=== PATIENT | female | born 1945 | race Hispanic/Latino ===

== ENCOUNTER 2020-02-21 06:13 | Emergency (ER) | payer MEDICARE, MEDICAID, SELFPAY ==
--- NOTE | ~2020-02-21 | XR_ITS ---
EXAMINATION: XR G tube evaluation w imaging DATE: 02/21/2020 08:22 INDICATION: Gastrostomy tube placement. TECHNIQUE: A supine view of the abdomen was obtained. COMPARISON: Abdomen single view at 7:47 AM FINDINGS: Stool distends the rectum. There is a large volume of stool in the colon. There is a gastro stomy tube in the body of the stomach. There is contrast in the tubing, stomach, and proximal duodenu m. IMPRESSION: 1. Gastrostomy tube in expected position in the body of the stomach. 2. Stool distends the rectum. Reviewed, dictated and finalized at location A.
--- NOTE | ~2020-02-21 | XR_ITS ---
EXAMINATION: XR abdomen/kub 1V DATE: 02/21/2020 07:51 INDICATION: Gastrostomy tube placement. TECHNIQUE: A supine view of the abdomen was obtained. COMPARISON: CT abdomen and pelvis 07/01/2013 FINDINGS: A gastrostomy tube overlies the left abdomen. There are no dilated loops of bowel. There is a large volume of stool in the colon. IMPRESSION: 1. Gastrostomy tube overlying the left abdomen. If there is clinical concern for abnormal positioning of the gastrostomy tube, consider contrast injection. Reviewed, dictated and finalized at location A. IMPRESSION: 1. Gastrostomy tube overlying the left abdomen. If there is clinical concern fo r abnormal positioning of the gastrostomy tube, consider contrast injection.
[2020-02-21 06:11] VITALS: BP 154/57; PULSE 65; RESP 20; TEMP 36.9; O2SAT 100
--- NOTE | 2020-02-21 06:19 | PC.NURSE ---
Patient's bedside glucose on arrival the ED is 98.
[2020-02-21 06:21] LABS: Glucose Point of Care 98 (65-105)
--- NOTE | 2020-02-21 07:18 | ED.RECABL ---
HPI - Recheck/Abnormal Lab/Rx General Chief Complaint: Recheck/Abnormal Lab/Rx Stated Complaint: G TUBE PROB Time Seen by Provider: 02/21/20 06:59 Source: EMS Mode of arrival: EMS Limitations: other (aphasia from previous stroke) History of Present Illness HPI narrative: This patient is a 74 year old female with history of CVA with aphasia with a g tube who presents for evaluation of a g tube. Nursing staff reports patient uses g tube for nutrition and it is clogged this morning. Nurses in ED attempted to flush but she states she was unable. PAtient was also found to be hypoglycemic prior to arrival with BS 59. She was given insulin last night. EMS gave patient d10 and her BS came up to 109. MD complaint: other (g tube malfunction) Related Data Allergies Allergy/AdvReac Type Severity Reaction Status Date / Time No Known Allergies Allergy Unknown Unverified 03/11/16 18:29 Review of Systems Review of Systems: ROS unobtainable: Yes unobtainable due to medical condition (patient has aphasia) Exam Const: General: no acute distress and alert HENMT: Head: normocephalic and atraumatic Eyes: EOM: EOMs intact bilaterally Chest: Chest palpation & inspection: normal inspection of the chest Resp: Effort & Inspection: normal respiratory effort Auscultation: clear to auscultation bilaterally Cardio: Rate: regular rate Rhythm: regular rhythm Heart sounds: no murmurs GI: Auscultation: normal bowel sounds Other: g tube in place, no bleeding or swelling around, Extrem: Other: contractures to extremity in particularly the left Psych: Mental Status: mental status grossly normal Affect: normal affect Course Reevaluation(s) Reevaluation #1: On assessment of original G tube I was able to flush with ease and draw back. Nursing staff continued to assess and all ports working. G tube in adequate position. Patient will be discharged back Date: 02/21/20 Time: 08:44 Vital Signs Vital signs: Vital Signs Temperature 98.4 F 02/21/20 06:11 Pulse Rate 65 02/21/20 06:11 Respiratory Rate 20 02/21/20 06:11 Blood Pressure 154/57 H 02/21/20 06:11 Pulse Oximetry 100 02/21/20 06:11 Temperature 98.4 F 02/21/20 06:11 Pulse Rate 62 02/21/20 09:32 Respiratory Rate 16 02/21/20 09:32 Blood Pressure 147/62 H 02/21/20 09:32 Pulse Oximetry 100 02/21/20 09:32 [facility] - Recheck/Abnormal Lab/Rx Lab Data Labs: Lab Results 02/21/20 02/21/20 02/21/20 Range/Units 06:18 07:51 08:56 POC Capillary Glucose 98 72 179 H (65-105) mg/dl Imaging Data Radiologist's impression: ITS Impressions Abdomen X-Ray 02/21/20 07:57 IMPRESSION: 1. Gastrostomy tube overlying the left abdomen. If there is clinical concern for abnormal positioning of the gastrostomy tube, consider contrast injection. Contrast Injection Evaluation 02/21/20 08:24 IMPRESSION: 1. Gastrostomy tube in expected position in the body of the stomach. 2. Stool distends the rectum. Discharge Plan Discharge Clinical Impression: Gastrostomy tube obstruction Patient Disposition: Home, Self-Care Condition: Stable Instructions: Antibiotic Form, How to Use and Care for Your PEG Tube (ED) Follow-up/Referrals: Lemuel Collazo MD [Primary Care Provider] - Discharge Date/Time: 02/21/20 09:39
--- NOTE | 2020-02-21 07:29 | PC.NURSE ---
ERP AT BEDSIDE TO REPLACE GTUBE AT THIS TIME, ASSUMED PT CARE FROM YOGESH AKINS, PT RESTING COMFORTABLY, VSS.
[2020-02-21 07:30] VITALS: BP 160/63; PULSE 62; RESP 18; O2SAT 100
[2020-02-21] MEDS: DEXTROSE 50% 25 GM/50 ML SYRINGE IV PUSH (07:49)
[2020-02-21 07:58] LABS: Glucose Point of Care 72 (65-105)
[2020-02-21 08:36] VITALS: BP 152/55; PULSE 63; RESP 16; O2SAT 100
[2020-02-21 08:59] LABS: Glucose Point of Care 179 (65-105)
[2020-02-21 09:32] VITALS: BP 147/62; PULSE 62; RESP 16; O2SAT 100
--- NOTE | 2020-02-21 09:33 | PC.NURSE ---
ATTEMPT TO CALL REPORT X3 TO [facility], NO ANSWER, NO VOICEMAIL REACHED, PHONE DISCONECTED EACH ATTEMPT.
--- NOTE | 2020-02-21 09:37 | PC.NURSE ---
REACHED SOMEONE AT [facility] AFTER CALLING AGAIN, SHE HUNG UP AFTER PLACING ME ON HOLD X5 MINUTES.
== END 2020-02-21 09:39 ==
PROVIDERS: Emergency Provider General Practice; PCP Family Medicine
DX: K94.23 Gastrostomy malfunction (principal); I69.920 Aphasia following unspecified cerebrovascular disease
CPT/HCPCS: 49465; 74018; 82948; 96374; 99284

== ENCOUNTER 2020-06-07 01:04 | Day surgery (SDC) | payer MEDICARE, MEDICAID, SELFPAY ==
--- NOTE | 2020-06-04 13:54 | PC.NURSE ---
1350 SPOKE WITH NURSE [facility] AT [facility] AND REQUESTED THE FOLLOWING INFO BE FAXED FROM PATIENT'S MEDICAL RECORD: HISTORY & PHYSICAL, MEDICATION LIST, CURRENT HEIGHT AND WEIGHT, AND ADVANCE DIRECTIVES/POA PAPERWORK. DOMINIQUE ZUÑIGA
[2020-06-05 09:04] VITALS: BMI 27.7
--- NOTE | 2020-06-05 09:19 | PC.NURSE ---
05/23/2020 COVID 19 TEST NEGATIVE FROM [facility]. DOMINIQUE ZUÑIGA
[2020-06-07 10:09] VITALS: BP 117/44; PULSE 52; RESP 16; TEMP 36.3; O2SAT 100
--- NOTE | 2020-06-07 10:25 | SUR.PREOP ---
Patient arrived by EMS awake and alert. FLACC 0. VSS. Patient remained on stretcher for procedure. MD at bedside- PEG tube removed and replaced with 18F right angle PEG tube. Patient tolerated well. New orders and report called to Candi RN at [facility]. Dressing applied. No acute distress noted. FLACC 0.
--- NOTE | 2020-06-07 14:09 | OP_ITS ---
DATE OF PROCEDURE: 06/07/2020 HISTORY AND PREOPERATIVE DIAGNOSIS: This very pleasant lady has a poorly functioning, unconditioned percutaneous gastrostomy tube. She is here for changing her gastrostomy tube. POSTOPERATIVE DIAGNOSIS: Status post changing of percutaneous gastrostomy tube. RECOMMENDATIONS: 1. Pressure dressing 48 hours. 2. Clean PEG site every shift with soap and water. 3. [facility] to confirm [facility]. 4. Please call if any problems. DESCRIPTION OF PROCEDURE: Patient was brought to the endoscopy suite and placed in the supine position. The old percutaneous gastrostomy tube was noted. It was in poor condition. This was removed with gentle traction. An 18-Uzbek percutaneous gastrostomy tube was inserted without difficulty. The gastrostomy tube was irrigated and bile was returned confirming placement. The patient tolerated the procedure well without immediate complications. Aldair I MT: Salbador
--- NOTE | 2020-06-07 15:13 | HP_ITS ---
DATE OF SERVICE: 06/07/2020 REASON FOR VISIT: Changing PEG tube. This very pleasant lady was seen in consultation at the request of the primary physician. The patient was examined. IMPRESSION: 1. The patient has a poor condition percutaneous gastrostomy tube. She is here for changing of the gastrostomy tube. 2. Gastroesophageal reflux disease. 3. Cerebral aneurysm with persistent left hemiplegia. 4. Hypertension. 5. Diabetes mellitus. RECOMMENDATIONS: Change the PEG tube. HISTORY: This very pleasant lady has a history of significant left hemiplegia. She is requiring percutaneous gastrostomy tube feedings. The old PEG tube is in poor condition. She is here for changing of the PEG tube. ALLERGIES: NO KNOWN DRUG ALLERGIES. MEDICINES: Reviewed. PAST MEDICAL HISTORY: As above. PAST SURGICAL HISTORY: Patient has a previously placed percutaneous gastrostomy tube. PHYSICAL EXAMINATION: HEENT: Head is normocephalic. Sclerae are clear. Mouth without masses. NECK: Supple. HEART: Rate and rhythm are regular without S3 or S4. LUNGS: Clear. ABDOMEN: Soft with a percutaneous gastrostomy tube in place. NEUROLOGIC: The patient has left hemiplegia. I want to thank you for allowing me to participate in the care of this patient. D I MT: Salbador
--- NOTE | 2020-06-08 09:57 | SUR.OPER ---
06/07/20 1025 Pt discarged via ambulance.
--- NOTE | 2020-06-11 15:42 | SUR.PREOP ---
06/07/20 1025 Pt discharged to [facility] via ambulance.
== END 2020-06-07 10:25 | disposition home or self-care (01) ==
PROVIDERS: PCP Family Medicine; Visit Provider Internal Medicine Gastroenterology
PROC: 0DH63UZ Insertion of Feeding Device into Stomach, Percutaneous Approach (ICD-10-PCS; CPT 43246; principal; 2020-06-07 09:30)
DX: K94.23 Gastrostomy malfunction (principal); K21.9 Gastro-esophageal reflux disease without esophagitis; I69.354 Hemiplegia and hemiparesis following cerebral infarction affecting left non-dominant side; I10 Essential (primary) hypertension; E11.9 Type 2 diabetes mellitus without complications
CPT/HCPCS: 43762; 99211; G0463

== ENCOUNTER 2020-07-05 14:28 | Emergency (ER) | payer MEDICARE, MEDICAID, SELFPAY ==
--- NOTE | ~2020-07-05 | CT_ITS ---
EXAMINATION: CT abdomen pelvis w con DATE: 07/05/2020 18:12 INDICATION: Abdomen pain. Weight gain. TECHNIQUE: Computed tomography (CT) of the abdomen and pelvis was performed with 100 cc Omnipaque 350 intravenous contrast. The dose-length product was 1155.97 mGy-cm. Automated exposure control and ite rative reconstruction technique were employed. COMPARISON: CT dated 06/01/2013 FINDINGS: Small pericardial effusion. Borderline heart size. There is an gastric tube in expected pos ition. The liver, spleen, pancreas, adrenal glands and left kidney are unremarkable. There is diffuse right urothelial enhancement, suspicious for ascending urinary tract infection. No obstructing stone or mass identified. Small soft tissue nodule left anterior abdominal wall, likely injection granulom a. Nonobstructive bowel gas pattern. Moderate fecal loading of the rectum. No lymphadenopathy. There is atherosclerosis. Gallbladder is present. No free air or free fluid. Study significantly limited by motion artifact. IMPRESSION: 1. Diffuse urothelial enhancement of the right renal pelvis and ureter, suspicious for ascending urin kathy tract infection/pyelonephritis. No definite obstructing stone or mass identified, although evalua tion of the pelvis limited by motion artifact. 2: Small pericardial effusion. Reviewed, dictated and finalized at location A. IMPRESSION: 1. Diffuse urothelial enhancement of the right renal pelvis and ureter, suspici ous for ascending urinary tract infection/pyelonephritis. No definite obstructi ng stone or mass identified, although evaluation of the pelvis limited by motio n artifact. 2: Small pericardial effusion.
[2020-07-05 14:39] VITALS: BP 125/53; PULSE 57; RESP 18; TEMP 36.7; O2SAT 97
--- NOTE | 2020-07-05 15:32 | ED.ABDPAIN ---
HPI - Abdominal Pain General Chief Complaint: Abdominal Pain Stated Complaint: ABD PAIN Time Seen by Provider: 07/05/20 15:24 Source: patient and EMS Mode of arrival: EMS Limitations: other (history of CVA with residual deficits, patient is nonverbal) History of Present Illness HPI narrative: This is a 74-year-old female that presents to the emergency department via EMS for abdominal pain per [facility]. Patient is nonverbal at baseline. They report her abdomen seem more distended and was tender. Patient resting on stretcher currently in no acute distress. Related Data Home Medications Medication Instructions Recorded Confirmed amlodipine 10 mg FEEDING TUBE DAILY 06/05/20 06/05/20 aspirin [Adult Low Dose Aspirin] 81 mg FEEDING TUBE DAILY 06/05/20 06/05/20 cholestyramine (with sugar) 4 g FEEDING TUBE DAILY 06/05/20 06/05/20 glucagon (human recombinant) 1 mg SUBCUT Q15-20M PRN 06/05/20 06/05/20 [GlucaGen HypoKit] hydralazine 50 mg FEEDING TUBE TID 06/05/20 06/05/20 insulin glargine [Lantus U-100 30 unit SUBCUT HS 06/05/20 06/05/20 Insulin] losartan 100 mg FEEDING TUBE DAILY 06/05/20 06/05/20 multivitamin with minerals 15 ml FEEDING TUBE DAILY 06/05/20 06/05/20 pravastatin 40 mg FEEDING TUBE DAILY 06/05/20 06/05/20 propranolol 120 mg FEEDING TUBE BID 06/05/20 06/05/20 Allergies Allergy/AdvReac Type Severity Reaction Status Date / Time No Known Allergies Allergy Unknown Verified 07/05/20 14:47 Review of Systems Review of Systems: ROS unobtainable: Yes unobtainable due to medical condition PMFSH Past Medical History Medical History (Updated 07/05/20 @ 20:28 by Cori Pinto PA-C) History of diabetes mellitus History of hyperlipidemia History of hypertension Exam Narrative: Exam Narrative: GENERAL: Well-appearing, well-nourished, and in no acute distress. HEAD: Normocephalic, atraumatic. EYES: EOMI. CHEST: Clear to auscultation. No respiratory distress. No wheezes rales or rhonchi HEART: Regular rate and rhythm. No murmur heard. Normal peripheral pulses. ABDOMEN: Soft, nondistended, normal active bowel sounds. Mild tenderness to palpation throughout the abdomen, without guarding EXTREMITIES: Normal range of motion. No edema. SKIN: Warm, dry, no rash. NEURO: Contractures on the left. Patient nonverbal at baseline. Alert and oriented to person. PSYCH: Normal mood and affect Course Consultations Consultation #1: Spoke with Dr. Collazo about patient and work-up. Patient will be given first dose of antibiotics IV in the ED and will be sent back with antibiotics. Date: 07/05/20 Time: 20:25 Vital Signs Vital signs: Vital Signs Temperature 98.1 F 07/05/20 14:39 Pulse Rate 57 L 07/05/20 14:39 Respiratory Rate 18 07/05/20 14:39 Blood Pressure 125/53 L 07/05/20 14:39 Pulse Oximetry 97 07/05/20 14:39 Temperature 98.1 F 07/05/20 14:39 Pulse Rate 76 07/05/20 17:05 Respiratory Rate 21 H 07/05/20 17:05 Blood Pressure 148/58 H 07/05/20 17:05 Pulse Oximetry 97 07/05/20 17:05 MDM - Abdominal Pain MDM Narrative Medical decision making narrative: Patient presents to the emergency department via EMS from her [facility] for abdominal pain. Patient with history of stroke and is non-verbal. She is afebrile and nontoxic-appearing. CBC is without leukocytosis. Metabolic panel and lipase are normal. UA with 3+ leuk esterase and trace bacteria. This was sent for a culture. CT scan of the abdomen and pelvis shows diffuse urothelial enhancement of the right renal pelvis suspicious for pyelonephritis. No definite obstructing stone or mass. No hydroureteronephrosis. Also shows a small pericardial effusion. Spoke with Dr. Collazo about patient and work-up. Patient will be given first dose of antibiotics IV in the ED and will be sent back with antibiotics. Patient is stable and felt appropriate for further outpatient evaluation. Was sent with warnings to return to the ER Lab Data A
[2020-07-05 16:04] LABS: Basophils Percent Auto 0.4 % (0.2-1.2); Eosinophils Absolute Auto 0.2 K/mm3 (0-0.3); Eosinophils Percent Auto 1.7 % (0-4.4); Hematocrit 40.1 % (37.0-47.0); Hemoglobin 13.2 g/dL (12.0-15.0); Immature Granulocyte Absolute 0.04 K/mm3 (0.00-0.031); Immature Granulocyte Percent A 0.4 % (0-0.5); Immature Platelet Fraction Pct 15.5 % (0.9-11.2); Lymphocytes Absolute Auto 2.92 K/mm3 (0.9-3.2); Lymphocytes Percent Auto 28.9 % (18.3-44.2); Mean Corpuscular HGB Conc 32.9 g/dl (32-36); Mean Corpuscular Hemoglobin 30.5 pg (26-34); Mean Corpuscular Volume 92.6 fl (80-100); Mean Platelet Volume 13.4 fl (7.4-10.4); Monocytes Absolute Auto 1.1 K/mm3 (0.1-0.6); Monocytes Percent Auto 10.4 % (2.6-8.5); Neutrophils Absolute Auto 5.9 K/mm3 (1.3-6.7); Neutrophils Percent Auto 58.2 % (45.5-73.1); Platelet Count Result 179 k/mm3 (150-375); Red Blood Count 4.33 M/mm3 (4.2-5.4); Red Cell Distribution Width 13.9 % (11.5-14.5); White Blood Count 10.1 K/mm3 (4.5-10.0)
[2020-07-05 16:10] LABS: Add Urine Microscopic? YES; Amorphous Sediment Urine Moderate; Appearance Urine Cloudy (Clear); Bacteria Urine Trace /hpf; Bilirubin Urine Negative (Negative); Blood Urine 1+ (Negative); Color Urine Yellow (Yellow); Glucose Urine UA Negative (Negative); Ketones Urine Negative (Negative); Leukocyte Esterase Ur 3+ LEU/UL (Negative); Nitrate Urine Negative (Negative); Protein Urine 1+ mg/dL (Negative); RBC Urine 0-2 /hpf (0-2); Specific Grav Ur 1.006 (1.001-1.035); Squamous Epithelial Cell Urine Occasional /hpf (Few); Urobilinogen Urine Negative mg/dL (<2.0); WBC Urine 0-3 /hpf
[2020-07-05 17:05] VITALS: BP 148/58; PULSE 76; RESP 21; O2SAT 97
[2020-07-05 17:50] LABS: Alanine Aminotransferase 15 U/L (4-35); Albumin Level 3.9 g/dL (3.5-5.1); Alkaline Phosphatase 119 U/L (38-126); Anion Gap 7 mmol/L (8-16); Aspartate Amino Transferase 25 U/L (14-36); Bilirubin,Total 0.3 mg/dL (0.2-1.3); Blood Urea Nitrogen 21 mg/dL (7-17); Calcium 8.8 mg/dL (8.4-10.2); Carbon Dioxide 26 mmol/L (22-30); Chloride 106 mmol/L (98-107); Estimated CRCL calculation 80 ml/min; Estimated Glomerular Filt Rate > 60; Glucose 104 mg/dL (65-105); Lipase 44 U/L (23-300); Potassium 4.5 mmol/L (3.4-5.0); Sodium 139 mmol/L (137-145)
[2020-07-05 21:13] VITALS: BP 132/58; PULSE 82; RESP 18; O2SAT 97
--- NOTE | 2020-07-05 21:23 | PC.NURSE ---
called [facility] and [facility] to transfer patient back home. both companies decline. [employer] was called and eta is 10 minutes
--- NOTE | 2020-07-05 21:51 | PC.NURSE ---
elizalde has arrived
== END 2020-07-05 22:01 ==
PROVIDERS: Physician Assistant; Emergency Provider Emergency Medicine; PCP Family Medicine
DX: N10 Acute pyelonephritis (principal); E11.9 Type 2 diabetes mellitus without complications; E78.5 Hyperlipidemia, unspecified; I10 Essential (primary) hypertension; I69.921 Dysphasia following unspecified cerebrovascular disease; I69.920 Aphasia following unspecified cerebrovascular disease; Z79.82 Long term (current) use of aspirin; Z79.4 Long term (current) use of insulin; Z93.1 Gastrostomy status
CPT/HCPCS: 36415; 51701; 74177; 80053; 81001; 83690; 85025; 85055; 87077; 87086; 87088; 87186; 96365; 96375; 99284; J0131; J0696; Q9967

== ENCOUNTER 2020-09-14 19:55 | Inpatient (IN) | payer MEDICARE, MEDICAID, SELFPAY ==
--- NOTE | ~2020-09-14 | XR_ITS ---
EXAMINATION: XR chest 1V portable INDICATION: Acute respiratory failure TECHNIQUE: Portable AP chest at 0532 hours COMPARISON: 09/17/2020 FINDINGS: The endotracheal tube ends approximately 1.8 cm above the janice. The nasogastric tube is f ollowed as far as the stomach. Its tip is beyond the inferior margin of the radiograph. A left customer success intern al jugular central venous catheter ends with its tip in the proximal superior vena cava. Diffuse airs pace opacities are present in all lung zones with slight worsening in the left midlung zone and impro vement on the right. There is no pleural effusion or pneumothorax. The cardiomediastinal silhouette i s stable. A percutaneous drain is seen in the right upper quadrant. IMPRESSION: 1. Diffuse lung disease with improvement on the right and worsening in the left midlung zone, consist ent with pneumonia and/or pulmonary edema and/or acute respiratory distress syndrome (ARDS). Reviewed, dictated and finalized at location A. PATIONAL THERAPIST PER DIEM IMPRESSION: 1. Diffuse lung disease with improvement on the right and worsening in the left midlung zone, consistent with pneumonia and/or pulmonary edema and/or acute re spiratory distress syndrome (ARDS).
--- NOTE | ~2020-09-14 | CT_ITS ---
EXAMINATION: CT chest abdomen pelvis wo con EXAM DATE: 09/14/2020 21:02 INDICATION: Abdominal distention. TECHNIQUE: Spiral CT of the chest, abdomen and pelvis was performed without contrast. Axial, muro l and sagittal images were reviewed. Coronal maximum intensity pixel images of chest reviewed. The dose-length product (DLP) for this examination was 1130.93 mGy-cm. The exposure was tailored accordi ng to patient size (auto mA exposure control), and iterative reconstruction (ASIR) was used as additi onal dose reduction technique. Comparison is made to prior examination from 07/05/2020. FINDINGS: CHEST: There is 7 mm left upper lobe groundglass nodular density for which a six-month follow-up CT scan should be obtained. Small to moderate pericardial effusion. Trace bilateral pleural effusions. Basilar subsegmental atelectasis. Tracheobronchial tree is patent. There is no mediastinal, hilar o r axillary lymphadenopathy. There is no pneumothorax. Heart normal in size. There is mild coron kathy arterial calcification, arterial sclerosis. ABDOMEN PELVIS: There is moderately distended gallbladder with indistinct wall, some pericholecystic fluid suspected. Appearances suspicious for acute cholecystitis. No calcified cholelithiasis or gas w ithin the gallbladder wall. The liver, spleen, adrenal glands and pancreas are unremarkable. Right r enal staghorn calculus. No hydronephrosis. The uterus is unremarkable. The bladder is unremarkable. There is no retroperitoneal or pelvic lymphadenopathy. There is moderate scattered arteriosclerot ic disease. There is fecal impaction with rectal vault measuring 11.5 cm in AP dimension. The appendix is not pos itively visualized. There is no pericecal inflammatory change to suggest appendicitis. Gastrostomy tube. No free intraperitoneal gas. There are no osteoblastic or osteolytic lesions identified. IMPRESSION: 1. Probable acute cholecystitis. 2. Left upper lobe nodule; six-month follow-up low-dose chest CT. 3. Cardiomegaly, pulmonary vascular congestion. Small effusions. 4. Basilar subsegmental atelectasis. 5. Right staghorn calculus. 6. Fecal impaction. Reviewed, dictated and finalized at location A. VIORAL ASSISTANT
--- NOTE | ~2020-09-14 | XR_ITS ---
EXAMINATION: XR chest 1V portable INDICATION: Acute respiratory failure TECHNIQUE: Portable AP chest at 0525 hours COMPARISON: 09/16/2020 FINDINGS: The endotracheal tube ends approximately 1.5 cm above the janice. A left internal jugular c entral venous catheter ends with its tip in the proximal superior vena cava. There are diffuse opacit ies throughout all lung zones, right greater than left. No pleural effusion or pneumothorax is identi fied. The cardiomediastinal silhouette is stable. IMPRESSION: 1. Stable diffuse lung disease, consistent with pneumonia and/or pulmonary edema and/or acute respira tory distress syndrome (ARDS). Reviewed, dictated and finalized at location A. ITURE MAKER IMPRESSION: 1. Stable diffuse lung disease, consistent with pneumonia and/or pulmonary nicolette a and/or acute respiratory distress syndrome (ARDS).
--- NOTE | ~2020-09-14 | XR_ITS ---
XR chest 1V portable 09/16/2020 05:53 Indication: Respiratory failure. Procedure: AP portable chest Comparison: 09/15/2020 Findings: Endotracheal tube tip 1.4 cm above the janice, directed towards the right mainstem bronchus. Left IJ central line tip in the CC. Diffuse bilateral airspace disease. Elevated right diaphragm. No signific ant effusion or pneumothorax. No acute osseous abnormality. Impression: 1: Increasing diffuse bilateral airspace disease with right apical pleural thickening/scarring. Consi jean edema and pneumonia. Reviewed, dictated and finalized at location A. ADMINISTRATOR Impression: 1: Increasing diffuse bilateral airspace disease with right apical pleural thic kening/scarring. Consider edema and pneumonia.
--- NOTE | ~2020-09-14 | US_ITS ---
US abdomen limited INDICATION: Right upper quadrant pain PROCEDURE: Realtime right upper abdominal ultrasound. COMPARISON: No prior studies for comparison. FINDINGS: The pancreas is normal without focal mass or pancreatic ductal dilation. Liver echotexture is normal without focal mass or intrahepatic biliary dilatation. There is normal directional flow i n the portal vein. Mild gallbladder wall thickening. No gallstones or pericholecystic fluid. Common bile duct measures 4 mm. No sonographic Ham's sign. IMPRESSION: 1: Mild gallbladder wall thickening which could indicate interstitial edema, chronic liver disease or chronic cholecystitis. Reviewed, dictated and finalized at location A. CLEANER IMPRESSION: 1: Mild gallbladder wall thickening which could indicate interstitial edema, ch ronic liver disease or chronic cholecystitis.
--- NOTE | ~2020-09-14 | XR_ITS ---
XR abdomen obstructive series 09/16/2020 09:46 Indication: Distended firm abdomen Procedure: Supine and upright views of abdomen Comparison: Comparison to multiple prior studies sequentially, with oldest reviewed study dated 09/2012. Findings: There is a moderate gas in the small bowel with large amount of retained fecal material in the rectum. There is a percutaneous cholecystostomy tube in the right upper abdomen. Bilateral airspa ce disease is present which may represent edema or pneumonia. Impression: 1: Moderately gas-filled distended small bowel in the right mid abdomen which may represent ileus or partial obstruction. Fecal impaction of the rectum. Reviewed, dictated and finalized at location A. HRONIZER Impression: 1: Moderately gas-filled distended small bowel in the right mid abdomen which m ay represent ileus or partial obstruction. Fecal impaction of the rectum.
--- NOTE | ~2020-09-14 | XR_ITS ---
EXAMINATION: XR abdomen obstructive series DATE: 09/18/2020 06:15 INDICATION: Ileus TECHNIQUE: Upright and supine views of the abdomen were obtained. COMPARISON: 09/17/2020 FINDINGS: The nasogastric tube is in the stomach. A cholecystostomy tube projects in the expected loc ation of the gallbladder. There is no free intraperitoneal gas. Mildly dilated loops of small bowel a re again seen in the right abdomen. A large volume of stool is present in the rectum. IMPRESSION: 1. Dilated small bowel consistent with ileus versus partial obstruction. 2. Fecal impaction. Reviewed, dictated and finalized at location A. CAL PLANNER
--- NOTE | ~2020-09-14 | US_ITS ---
EXAMINATION: US perc cholecystostomy w imag DATE: 09/15/2020 15:51 INDICATION: Acute cholecystitis TECHNIQUE: Informed consent was obtained from patient's family by the ICU staff. The patient was conf irmed to be receiving appropriate antibiotic coverage. The skin overlying the liver and gallbladder was prepped and draped in usual sterile fashion. Anesthetic was administered with 1% lidocaine subcu taneously. An 8.5 Fr catheter was inserted through liver parenchyma into the gallbladder by trocar t echnique. The metal stiffener and trocar needle were removed, and the pigtail tip was locked. Bile wa s aspirated and sent for culture. The catheter was stitched to the skin with suture. There were no im mediate complications. FINDINGS: The gallbladder is dilated with wall thickening, consistent with acute cholecystitis. Ultra sound images demonstrate the catheter within the gallbladder. 20 mL bile was aspirated. Final images show the formed pigtail catheter tip in the gallbladder. IMPRESSION: 1. Successful ultrasound-guided cholecystostomy tube placement. 2. 20 mL bile was sent for aerobic, anaerobic, and fungal cultures. 3. The catheter will be managed by Dr. Farr. A catheter cholangiogram may be performed not less than 48 hours after tube placement if clinically indicated to assess cystic duct patency. If cholecystec krysta is not eventually performed and the infectious episode has resolved, the tube may be removed ove r a guidewire, preferably not less than 3 weeks after placement to allow time for a mature catheter t ract to form to prevent bile leakage and peritonitis. Reviewed, dictated and finalized at location A. TEGIES ANALYST IMPRESSION: 1. Successful ultrasound-guided cholecystostomy tube placement. 2. 20 mL bile was sent for aerobic, anaerobic, and fungal cultures. 3. The catheter will be managed by Dr. Farr. A catheter cholangiogram may be p erformed not less than 48 hours after tube placement if clinically indicated to assess cystic duct patency. If cholecystectomy is not eventually performed an d the infectious episode has resolved, the tube may be removed over a guidewire , preferably not less than 3 weeks after placement to allow time for a mature c atheter tract to form to prevent bile leakage and peritonitis.
--- NOTE | ~2020-09-14 | XR_ITS ---
XR chest port-a-cath/central 09/15/2020 03:23 Indication: Central line insertion Procedure: AP portable chest Comparison: 09/15/2020 Findings: Endotracheal tube tip 2.4 cm above the janice. Heart size upper normal. There is diffuse bi lateral airspace disease. There is right apical pleural opacity. Central line tip in the SVC. No pneu mothorax. No significant effusion. Impression: 1: Extensive bilateral airspace disease which may represent pneumonia or pleural thickening. 2: Right upper thoracic pleural thickening versus loculated effusion. Reviewed, dictated and finalized at location A. TROUBLE SHOOTER Impression: 1: Extensive bilateral airspace disease which may represent pneumonia or pleura l thickening. 2: Right upper thoracic pleural thickening versus loculated effusion.
--- NOTE | ~2020-09-14 | XR_ITS ---
EXAMINATION: XR abdomen NG/feed tube insert DATE: 09/17/2020 17:26 INDICATION: Ileus. Nasogastric tube insertion. TECHNIQUE: A supine view of the abdomen was obtained for evaluation of feeding tube placement. COMPARISON: None. FINDINGS: Nasogastric tube tip and proximal side port in the body of the stomach. Right upper quadrant percutan eous cholecystostomy tube with formed loop projecting over the expected location of the gallbladder f supa. Small amount of gas within a few nondilated loops of bowel in the right abdomen consistent with provided history of ileus. Streaky left basilar atelectasis. IMPRESSION: 1. Nasogastric tube in stomach. Reviewed, dictated and finalized at location A. LATORY ASSOCIATE
--- NOTE | ~2020-09-14 | XR_ITS ---
XR chest ET placement 09/15/2020 01:53 Indication: Endotracheal tube placement Procedure: AP portable chest Comparison: No prior studies for comparison. Findings: There is an endotracheal tube, tip at the janice. NG tube in the stomach. There is diffuse bilateral airspace disease. There is right apical pleural thickening/loculated effusion. No pneumotho rax. Impression: 1: Diffuse bilateral airspace disease may represent edema or pneumonia. 2: Endotracheal tube tip at the janice. Recommend retraction 2-3 cm. 3: Right apical pleural opacity, pleural thickening versus loculated effusion. Reviewed, dictated and finalized at location A. PROFESSIONAL Impression: 1: Diffuse bilateral airspace disease may represent edema or pneumonia. 2: Endotracheal tube tip at the janice. Recommend retraction 2-3 cm. 3: Right apical pleural opacity, pleural thickening versus loculated effusion.
[2020-09-14 19:57] VITALS: BP 130/57; PULSE 79; RESP 33; TEMP 36.8; O2SAT 90
[2020-09-14 20:05] VITALS: O2SAT 95
--- NOTE | 2020-09-14 20:08 | ED.ABDPAIN ---
HPI - Abdominal Pain General Chief Complaint: Abdominal Pain Stated Complaint: abd distention Time Seen by Provider: 09/14/20 20:01 Source: patient Mode of arrival: EMS Limitations: clinical condition and other (Dementia history) History of Present Illness HPI narrative: Patient 75-year-old female brought in from the senior living due to abdominal distention. Unable to obtain any history from the patient patient due to being nonverbal. Patient history of CVA with aphasia. Related Data Home Medications Medication Instructions Recorded Confirmed amlodipine 10 mg FEEDING TUBE DAILY 06/05/20 06/05/20 aspirin [Adult Low Dose Aspirin] 81 mg FEEDING TUBE DAILY 06/05/20 06/05/20 cholestyramine (with sugar) 4 g FEEDING TUBE DAILY 06/05/20 06/05/20 glucagon (human recombinant) 1 mg SUBCUT Q15-20M PRN 06/05/20 06/05/20 [GlucaGen HypoKit] hydralazine 50 mg FEEDING TUBE TID 06/05/20 06/05/20 insulin glargine [Lantus U-100 30 unit SUBCUT HS 06/05/20 06/05/20 Insulin] losartan 100 mg FEEDING TUBE DAILY 06/05/20 06/05/20 multivitamin with minerals 15 ml FEEDING TUBE DAILY 06/05/20 06/05/20 pravastatin 40 mg FEEDING TUBE DAILY 06/05/20 06/05/20 propranolol 120 mg FEEDING TUBE BID 06/05/20 06/05/20 Allergies Allergy/AdvReac Type Severity Reaction Status Date / Time No Known Allergies Allergy Unknown Verified 07/05/20 14:47 Review of Systems Review of Systems: All systems reviewed & are unremarkable except as noted in HPI and below ROS unobtainable: Yes other (Dementia, nonverbal) [facility] Past Medical History Medical History (Updated 09/14/20 @ 22:38 by Toby Petty MD) History of diabetes mellitus History of hyperlipidemia History of hypertension Exam Const: General: no acute distress, alert and confusion HENMT: Head: normal to inspection, normocephalic and atraumatic Ears: hearing grossly normal bilaterally, TM normal on the right and TM normal on the left General nose exam: Normal external nose present, Normal nares present and No nasal discharge present Face and sinus: normal facial exam Mouth: Yes Normal oral and palatal mucosa present, Yes lip normal, Yes tongue normal and Yes oropharynx normal Throat: posterior oropharynx normal, tonsils normal and uvula midline Eyes: General: appearance normal, both eyes and all related structures Pupils: Equal, round and reactive pupils present EOM: EOMs intact bilaterally Neck: Neck: normal visual inspection, full ROM, no lymphadenopathy and no meningeal signs Chest: Chest palpation & inspection: normal inspection of the chest Resp: Effort & Inspection: normal respiratory effort, able to speak in complete sentences, no respiratory distress and not tachypneic Auscultation: clear to auscultation bilaterally, no crackles, no rales, no rhonchi and no wheezes Cardio: Rate: regular rate Rhythm: regular rhythm GI: Inspection: normal to inspection GI Palp: No abdominal tenderness, Yes Soft to palpation, No Tenderness to palpation present (GI), No Guarding due to palpation present (GI), No Rigid due to palpation and No Rebound tenderness present Auscultation: normal bowel sounds : General: Yes no CVA tenderness Back/Spine/Pelvis: Back: no CVA tenderness Skin: General skin exam: normal color, no rashes or lesions noted, elasticity normal and turgor normal Neuro: General: tone normal, moves all extremities, Normal light touch and pain sensation, no meningeal signs and no focal motor deficits Cranial nerves: Yes Equal, round and reactive pupils present Speech: No Abnormal speech present Sensory Exam: No Sensory deficit (Neuro) Extrem: General: normal to inspection, full ROM and capillary refill normal Psych: Appearance: grossly normal and well kempt Mental Status: mental status grossly normal Speech and movement: Normal speech and movement present Affect: normal affect Attitude: cooperative Course Vital Signs Vital signs: Vital Signs Temperature 36.8 C 01/
[2020-09-14 20:32] LABS: Hematocrit 32.6 % (37.0-47.0); Mean Corpuscular HGB Conc 33.7 g/dl (32-36); Mean Corpuscular Volume 88.8 fl (80-100); Mean Platelet Volume 12.8 fl (7.4-10.4); Platelet Count Result 82 k/mm3 (150-375); Red Blood Count 3.67 M/mm3 (4.2-5.4); Red Cell Distribution Width 14.3 % (11.5-14.5); White Blood Count 27.4 K/mm3 (4.5-10.0)
[2020-09-14 20:38] VITALS: BP 125/60; PULSE 72; RESP 38; TEMP 37.6; O2SAT 95
[2020-09-14 20:42] LABS: Band Neutrophils Percent 5 % (0-6); Eosinophils Absolute Manual 0.27 K/mm3 (0.02-0.5); Eosinophils Percent Manual 1 % (0-4); Lymphocytes Absolute Manual 1.09 K/mm3 (1.1-4.5); Monocytes Absolute Manual 3.28 K/mm3 (0.1-0.90); Monocytes Percent Manual 12 % (3-9); Neutrophils Absolute Manual 22.74 K/mm3 (1.7-7.2); Neutrophils Percent Manual 78 % (46-73); Total Cells Counted 100
[2020-09-14 20:44] LABS: Hypochromasia 1+ (NORMAL); Platelet Estimate Decreased (Adequate)
[2020-09-14 20:48] LABS: Alveolar/Arterial O2 Gradient 80.1 mmHg; Carboxyhemoglobin 0.1 % THb (0-2.0); Fractional Inspired Oxygen 28 %; HCO3 ABG 17.5 mEq/l (22.0-26.0); Methemoglobin ABG 0.4 %THb (0-1.5); Oxygen Content ABG 15.4 %vol (16.0-22.0); Oxygen Saturation ABG 95.7 % (95.0-100.0); PCO2 ABG 32.1 mmHg (35.0-45.0); PO2 ABG 81.7 mmHg (80.0-100.0); PO2 FiO2 Ratio Arterial Blood 2.92 %; Reduced Hemoglobin 4.5 %THb (0-5.0); Total Hemoglobin 11.5 g/dL (12.0-18.0); pH ABG 7.355 (7.350-7.450)
[2020-09-14 20:49] LABS: Device NASAL CANNULA; Site Drawn RIGHT RADIAL
[2020-09-14 20:51] LABS: Alanine Aminotransferase 20 U/L (4-35); Albumin Level 3.3 g/dL (3.5-5.1); Alkaline Phosphatase 240 U/L (38-126); Anion Gap 13 mmol/L (8-16); Aspartate Amino Transferase 33 U/L (14-36); Bilirubin,Total 1.3 mg/dL (0.2-1.3); Blood Urea Nitrogen 27 mg/dL (7-17); Calcium 8.3 mg/dL (8.4-10.2); Carbon Dioxide 18 mmol/L (22-30); Chloride 94 mmol/L (98-107); Estimated Glomerular Filt Rate > 60; Glucose 196 mg/dL (65-105); Lipase 50 U/L (23-300); Potassium 4.5 mmol/L (3.4-5.0); Sodium 125 mmol/L (137-145)
--- NOTE | 2020-09-14 20:52 | PC.NURSE ---
Patient to CT.
[2020-09-14] MEDS: LACTATED RINGERS 1,000 ML 999 ML IV CONT (21:47)
--- NOTE | 2020-09-14 21:47 | PC.NURSE ---
Per EDP Malinda, do not give patient 2,200mL due to patient's hx of CHF. Per EDP, just give patient 1L of lactated ringers.
[2020-09-14 21:50] VITALS: BP 129/52; PULSE 67; RESP 34; O2SAT 98
[2020-09-14 22:31] VITALS: BP 94/71; PULSE 65; RESP 35; TEMP 37.6; O2SAT 97
--- NOTE | 2020-09-14 23:00 | PC.NURSE ---
Patient to be transported to IMU when room is ready.
[2020-09-14 23:22] VITALS: BP 98/71; PULSE 60; RESP 30; O2SAT 96
[2020-09-14 23:46] LABS: Reflex Lactic Acid Yes or No Add Lactic
[2020-09-15] VITALS (51 sets, daily range): BP systolic 74–145; BP diastolic 41–68; PULSE 40–78; RESP 17–39; TEMP 35.9–37.2; O2SAT 80–100; BMI 24.5
[2020-09-15 01:32] LABS: Glucose Point of Care 97 (65-105)
--- NOTE | 2020-09-15 01:33 | ECG_ITS ---
Measurements Intervals [place] Rate: 45 P: MD: 0 QRS: 53 QRSD: 102 T: 75 QT: 480 QTc: 417 Interpretive Statements JUNCTIONAL RHYTHM WITH ECTOPIC ATRIAL COMPLEXES ST-T WAVE ABNORMALITY IN ANTERIOR LEADS- CONSIDER ISCHEMIA BASELINE ARTIFACT- II, III, AVF, V4-V5 ABNORMAL ECG Electronically Signed On 09-15-2020 14:17:52 FOREST RESOURCES PROFESSOR by Cooper Chávez D.O.
--- NOTE | 2020-09-15 01:36 | PM.EVENT ---
Event Note Event Note Event Note: CODE BLUE NOTE This is a 75-year-old female who was admitted to the [facility] for severe sepsis and acute cholecystitis. Upon arriving to the IMU nursing staff called me as the patient was not responsive. Jane luque was immediately called as the patient was pulseless. On my arrival to bedside the patient was being given chest compressions by nursing staff. She was placed on the Tabber on the crash cart. We performed a pulse check at 01:08 hrs and the patient was in asystole. 1 amp of Epinephrine IVP was given and CPR was resumed. Approximately 1 minute later 1 amp of Sodium Bicarbonate was given IVP. At the 2 min echo, we performed another pulse check. The patient remained in Asystole and another amp of Epinephrine IVP was given. CPR was resumed. The patient began to vomit up copious amounts of yellowish emesis. While CPR was ongoing we suctioned out her mouth. At the next pulse check I intubated the patient with a standard MAC 3 laryngoscope and a size 7.5 ET tube. We immediately noticed a blood tinged frothy sputum in the ET tube. AT the next pulse check the patient remained in asysotle. CPR was resumed and we administered another amp of Sodium Bicarbonate IVP. At the 3 minute echo from the last Epinephrine, we administered another amp of Epinephrine IVP. CPR continued and at the next pulse check the patient had a palpable pulse. She appeared to be in sinus tachycardia on the monitor around 120 bpm. Bedside glucose was obtained which was 97. The patient's heart rate started to diminish and when her heart rate was in the 40s we gave the patient 0.5 Atropine IVP. A NS fluid bolus was started as well as Dopamine IV. A few moments later blood pressure was finally obtainable at 173/55 mm Hg. The patient was transferred to the ICU for post code care.
--- NOTE | 2020-09-15 01:36 | WPDPROCEDUR ---
Procedures Intubation Intubation Date: 09/15/20 Intubation Time: 01:16 Consent: Patient was intubated emergently during CODE BLUE A pre-procedural Time-Out was completed immediately before starting the procedure and confirmed: Patient Identification, Site, Procedure, Patient Position and the Availability of Requisite Equipment: No Sedative: none ET tube size: 7.5 Tube secured depth (cm): 26 Tube secured location: lips Tube placement confirmation: visualized tube passing through cords, equal breath sounds bilaterally, no breath sounds over epigastrium and confirmation by capnometry Patient tolerated procedure: well and no complications Intubation complications: none Additional comments: Date of service of procedure was 09/15/2020 at 01:16 hrs.
[2020-09-15 02:11] LABS: Alveolar/Arterial O2 Gradient 381.2 mmHg; Base Excess ABG -8.8 mEq/l (+/-2.0); Fractional Inspired Oxygen 80 %; Oxygen Content ABG 12.4 %vol (16.0-22.0); Oxygen Saturation ABG 98.4 % (95.0-100.0); Oxyhemoglobin 96.9 % THb (90.0-100.0); PCO2 ABG 43.2 mmHg (35.0-45.0); PO2 ABG 143.8 mmHg (80.0-100.0); Total Hemoglobin 8.9 g/dL (12.0-18.0)
[2020-09-15 02:12] LABS: Device VENTILATOR; Site Drawn RIGHT BRACHIAL; pH ABG 7.238 (7.350-7.450)
[2020-09-15 02:13] LABS: Arterial Blood Gas PEEP 10 cmH2O; Arterial Blood Gas Tidal Volume 380 ml; Arterial Blood Gas Vent Mode ASSIST CONTROL; Arterial Blood Gas Ventilator rate 15 /MIN
--- NOTE | 2020-09-15 02:14 | PC.NURSE ---
spoke with son Todd, who is the patients eldest son, Daughter was POA but she has since . He understands pt is currently intubated on vent and had a cardiac arrest. He consents to TLC and ART line placement if needed and if pt were to code again he wants everything to be done.
--- NOTE | 2020-09-15 02:26 | PC.NURSE ---
Pt arrived to floor at 0048. While attempting to clean pt up and put a monitor on her, she began to have periods of apnea with a pulse. Called Dr Hernandez to come see her and went to grab suction equipment as pt had secretions dripping from the side of her mouth. In that time, the pt lost her pulse and a code was called at 0105.
[2020-09-15] MEDS: SODIUM CHLORIDE 0.9% IV 500 ML IV CONT (02:40)
[2020-09-15] MEDS: NOREPINEPHRINE 8 MG/D5W 250 ML 8 MG/250 ML BAG 18.75 MG IV CONT (02:45)
[2020-09-15] MEDS: ATROPINE SULFATE 1 MG/10 ML SYRINGE (02:57)
--- NOTE | 2020-09-15 03:18 | P.PCNBED_ITS ---
Procedures Central Line Placement Left IJ: Central Line Date: 09/15/20 Central Line Time: 02:45 Discussed w/ the patient/family/POA,the placement of a central venous catheter, including its clinical necessity/indication & associated potential risks, benifits and alternatives.: Yes Time Out Performed: Yes Patient Position: supine Patient placed on monitor/pulse ox: Yes Provider Prep: mask, sterile gown, sterile gloves, Max. sterile barrier precautions, cap and hand hygiene with conventional soap/water or alcohol based hand rub Central line prep: 2% Chlorhexidine scrub Sterile US Technique with sterile gel/sterile probe covers: Yes Central line lumen inserted: triple Zimbabwean: 7 Length (cm): 16 Depth of Insertion (cm): 16 Post Procedure: sutured in place, good blood return, all ports aspirated, flushed, capped, transparent dressing, securement product and aseptic technique maintained throughout procedure Post procedure x-ray: tip of catheter in good position and no pneumothorax seen Patient tolerated procedure: well and no complications Additional comments: Date of service of procedure was 09/15/2020 at 02:45 hrs
--- NOTE | 2020-09-15 03:20 | P.PCNBED_ITS ---
Procedures Arterial Line Arterial Line Date: 09/15/20 Arterial Line Time: 03:20 Discussed with the patient/family/POA, the placement of an arterial catheter, including its clinical necessity/indication and associated potential risks, benefits and alternatives.: Yes Patient Position: supine Apartment Maintenance Technician Prep: sterile gloves, mask and hat Site: right and radial Site Prep: chlorhexidine and sterile drape Skin Anesthesia: placed under general anesthesia Technique used: direct puncture technique Size (Gauge): 16 Length: 4.4 cm Closure/Dressing: suture, transparent dressing and securement product Patient tolerated procedure: well and no complications Additional comments: Date of service of procedure was 09/15/2020 at 03:20 hrs
[2020-09-15] MEDS: SODIUM BICARBONATE 8.4% 150 MEQ in WATER, STERILE FOR INJECTION 950 ML IV CONT ×3 (03:30→18:09)
[2020-09-15 03:43] LABS: Hematocrit 24.9 % (37.0-47.0); Hemoglobin 8.2 g/dL (12.0-15.0); Immature Platelet Fraction Pct 19.2 % (0.9-11.2); Mean Corpuscular HGB Conc 32.9 g/dl (32-36); Mean Corpuscular Hemoglobin 30.3 pg (26-34); Mean Corpuscular Volume 91.9 fl (80-100); Mean Platelet Volume 13.6 fl (7.4-10.4); Platelet Count Result 69 k/mm3 (150-375); Red Blood Count 2.71 M/mm3 (4.2-5.4); Red Cell Distribution Width 14.6 % (11.5-14.5); White Blood Count 26.4 K/mm3 (4.5-10.0)
[2020-09-15] MEDS: HYDROCORTISONE SODIUM SUCCINATE 100 MG/2 ML VIAL IV PUSH ×3 (03:43→23:00)
--- NOTE | 2020-09-15 03:47 | PM.IMHP ---
H&P: HPI History of Present Illness Date/Time: 09/15/20 03:47 Chief Complaint: Abdominal Distension Narrative: This is a 75-year-old obese diabetic female with known history of aphasia secondary to a previous CVA, hypertension, and hyperlipidemia who presented from the residential secondary to abdominal distension. no history could be obtainable from the patient in the emergency room and routine labs were obtained which demonstrated that the patient was severely septic. [place] [address] and lactic acid was elevated at 5.0. CT abdomen pelvis was obtained which demonstrated probable acute cholecystitis. ER provider consulted general surgery who agreed to consult on the patient. In the ER tonight the patient was treated with 2 liters of RL IV bolus and one dose of IV zosyn. The patient's last blood pressure prior to arriving on the floor was 98/71 mm Hg. The patient arrived at 12:48 hrs and at 01:05 nursing staff noticed that the patient was not breathing and was unresponsive. CODE BLUE was called overhead. On my arrival to bedside nursing staff was initiating chest compressions. The patient was coded and intubated at bedside during the CODE BLUE secondary to profuse vomiting and inability to bag her. The patient regained ROSC during the CODE BLUE and she was started on an IV bolus and vasopressors. She was urgently moved to ICU for post code care. Review of Systems Review of Systems: ROS unobtainable: Yes unobtainable due to medical condition and unobtainable due to mental status PMFSH Past Medical History Medical History History of diabetes mellitus History of hyperlipidemia History of hypertension Social History Social History Smoking status: Never smoker Alcohol intake: never Substance use: never Spiritual care concerns: No Comments Past medical histories are unobtainable secondary to medical condition. Meds Home Medications and Allergies Home Medications Medication Instructions Recorded Confirmed Type amlodipine 10 mg FEEDING TUBE DAILY 06/05/20 09/15/20 History aspirin [Adult Low Dose Aspirin] 81 mg FEEDING TUBE DAILY 06/05/20 09/15/20 History cholestyramine (with sugar) 4 g FEEDING TUBE DAILY 06/05/20 09/15/20 History glucagon (human recombinant) 1 mg SUBCUT Q15-20M PRN 06/05/20 09/15/20 History [GlucaGen HypoKit] hydralazine 50 mg FEEDING TUBE TID 06/05/20 09/15/20 History insulin glargine [Lantus U-100 30 unit SUBCUT HS 06/05/20 09/15/20 History Insulin] losartan 100 mg FEEDING TUBE DAILY 06/05/20 09/15/20 History multivitamin with minerals 15 ml FEEDING TUBE DAILY 06/05/20 09/15/20 History pravastatin 40 mg FEEDING TUBE DAILY 06/05/20 09/15/20 History propranolol 120 mg FEEDING TUBE BID 06/05/20 09/15/20 History insulin aspart U-100 [Novolog See Rx Instructions .ROUTE .COMPLEX 09/15/20 09/15/20 History PenFill U-100 Insulin] miconazole nitrate [DermaFungal] 1 applic TOPICAL DAILY PRN 09/15/20 09/15/20 History Allergies Allergy/AdvReac Type Severity Reaction Status Date / Time No Known Allergies Allergy Unknown Verified 07/05/20 14:47 Vital Signs Vital Signs - 24 hr 09/14/20 19:57 09/14/20 20:05 09/14/20 20:38 Temperature 36.8 C 37.6 C Pulse Rate 79 72 Respiratory Rate 33 H 38 H Blood Pressure 130/57 L 125/60 Pulse Oximetry 90 95 95 09/14/20 21:50 09/14/20 22:31 09/14/20 23:22 Temperature 37.6 C H Pulse Rate 67 65 60 Respiratory Rate 34 H 35 H 30 H Blood Pressure 129/52 L 94/71 L 98/71 L Pulse Oximetry 98 97 96 09/15/20 00:36 09/15/20 01:56 09/15/20 02:17 Temperature Pulse Rate 56 L 57 L Respiratory Rate 29 H Blood Pressure 99/52 L Pulse Oximetry 95 100 80 L 09/15/20 02:27 09/15/20 02:45 09/15/20 02:49 Temperature Pulse Rate 52 L 41 L 46 L Respiratory Rate Blood Pressure 74/41 L 96/41 L Pulse Oximet
[2020-09-15 03:50] LABS: Add Urine Microscopic? YES; Appearance Urine Turbid (Clear); Bacteria Urine 2+ /hpf; Bilirubin Urine Negative (Negative); Blood Urine 3+ (Negative); Color Urine Red (Yellow); Glucose Urine UA 1+ mg/dL (Negative); Ketones Urine Negative (Negative); Leukocyte Esterase Ur 2+ LEU/UL (Negative); Mucus Urine Moderate /lpf; Nitrate Urine Negative (Negative); Protein Urine 2+ mg/dL (Negative); RBC Urine >75 /hpf (0-2); Specific Grav Ur 1.014 (1.001-1.035); Squamous Epithelial Cell Urine Moderate /hpf (Few); Urobilinogen Urine Negative mg/dL (<2.0); WBC Urine >75 /hpf
[2020-09-15 03:54] LABS: Alanine Aminotransferase 35 U/L (4-35); Albumin Level 2.2 g/dL (3.5-5.1); Alkaline Phosphatase 103 U/L (38-126); Anion Gap 9 mmol/L (8-16); Aspartate Amino Transferase 94 U/L (14-36); Bilirubin,Total 1.3 mg/dL (0.2-1.3); Blood Urea Nitrogen 29 mg/dL (7-17); Calcium 6.9 mg/dL (8.4-10.2); Carbon Dioxide 19 mmol/L (22-30); Chloride 100 mmol/L (98-107); Estimated CRCL calculation 33 ml/min; Estimated Glomerular Filt Rate 40; Glucose 124 mg/dL (65-105); Magnesium 2.7 mg/dL (1.6-2.3); Phosphorus 3.5 mg/dL (2.5-4.5); Potassium 5.2 mmol/L (3.4-5.0); Sodium 128 mmol/L (137-145)
[2020-09-15 03:55] LABS: Prothrombin Time 23.5 Seconds (11.1-14.7)
[2020-09-15 03:57] LABS: Lactic Acid Reflex 6.9 mmol/L (0.7-2.1); Partial Thromboplastin Time 55.8 SECONDS (22.3-36.8)
[2020-09-15 04:11] LABS: Troponin I 0.046 ng/mL (0.000-0.034)
[2020-09-15 04:12] LABS: Band Neutrophils Percent 8 % (0-6); Lymphocytes Absolute Manual 0.79 K/mm3 (1.1-4.5); Monocytes Absolute Manual 1.32 K/mm3 (0.1-0.90); Monocytes Percent Manual 5 % (3-9); Neutrophils Absolute Manual 24.28 K/mm3 (1.7-7.2); Neutrophils Percent Manual 84 % (46-73); Platelet Estimate Decreased (Adequate); Total Cells Counted 100
[2020-09-15 04:13] LABS: Hypochromasia 1+ (NORMAL); Large Platelets Present
[2020-09-15 04:52] LABS: Alveolar/Arterial O2 Gradient 544.2 mmHg; Base Excess ABG -9.2 mEq/l (+/-2.0); Fractional Inspired Oxygen 100 %; HCO3 ABG 16.4 mEq/l (22.0-26.0); Oxygen Saturation ABG 98.4 % (95.0-100.0); Oxyhemoglobin 97.2 % THb (90.0-100.0); PCO2 ABG 34.2 mmHg (35.0-45.0); PO2 ABG 134.6 mmHg (80.0-100.0); PO2 FiO2 Ratio Arterial Blood 1.35 %; Total Hemoglobin 9.3 g/dL (12.0-18.0)
[2020-09-15 04:53] LABS: Device VENTILATOR; Site Drawn ARTLINE
[2020-09-15 04:54] LABS: Arterial Blood Gas PEEP 7 cmH2O; Arterial Blood Gas Vent Mode ASSIST CONTROL; Arterial Blood Gas Ventilator rate 15 /MIN; pH ABG 7.298 (7.350-7.450)
[2020-09-15 04:55] LABS: Arterial Blood Gas Tidal Volume 380 ml
[2020-09-15] MEDS: CENTRAL LINE FLUSH 10 ML IV PUSH ×3 (06:03→23:00)
[2020-09-15] MEDS: NOREPINEPHRINE 8 MG/D5W 250 ML 8 MG/250 ML BAG 56.25 MG IV CONT ×3 (07:37→17:11)
[2020-09-15 08:01] LABS: Hematocrit 25.8 % (37.0-47.0); Hemoglobin 8.8 g/dL (12.0-15.0)
[2020-09-15 08:02] LABS: Immature Reticulocyte Fraction 14.4 % (3.0-15.9); Reticulocyte Hemoglobin Conten 28.5 pg (28.2-35.7); Reticulocyte Percent 2.03 % (0.7-4.3); Reticulocytes Absolute 0.06 B/L (32.2-175.7)
[2020-09-15 08:15] LABS: Bilirubin Direct 0.3 mg/dL (0-0.3); Bilirubin,Total 1.6 mg/dL (0.2-1.3); Lactate Dehydrogenase 1732 U/L (313-618)
[2020-09-15 08:22] LABS: Transferrin 112 mg/dL (206-381)
[2020-09-15] MEDS: PANTOPRAZOLE SODIUM IV 40 MG VIAL IV PUSH (08:23)
[2020-09-15 08:28] LABS: Troponin I 0.119 ng/mL (0.000-0.034)
[2020-09-15] MEDS: ALBUTEROL SULFATE NEB 2.5 MG/0.5 ML INH 5 MG INHALATION ×4 (08:37→20:37)
[2020-09-15 08:55] LABS: Iron < 10 ug/dL (37-170)
--- NOTE | 2020-09-15 08:57 | ECHO_ITS ---
Patient Info Name: Lashay Hernandez Age: 75 years : 1945 Gender: Female Ht: 67 in Wt: 156 lbs BSA: 1.84 m2 HR: 61 bpm BP: 122 / 46 mmHg Heart Rhythm: Sinus Rhythm Technical Quality: Poor Exam Date: 09/15/2020 9:21 AM Exam Location: [facility] Pulmonary Patient Status: Inpatient Admit Date: 09/14/2020 Staff Ordering Physician: Dhara Hopper MD Human Resources Benefits Assistant: Litzy Shepherd [facility] Attending Provider: Zay Hernandez MD Referring Physician: Ward OSEGUERA; Exam Type: CA echo dop color flow w con Study Info Complete two-dimensional, color flow and Doppler transthoracic echocardiogram is performed with contrast to opacify the left ventricle and to improve the deliniation of the left ventricle endocardial borders. Contrast/Agitated Saline Contrast/Ag. Saline: Definity Amount: 5.00 ml Summary 1. Left ventricular systolic function is normal, estimated at 65-70%. 2. Right ventricular chamber dimension is normal. 3. Left atrial chamber dimension is moderately enlarged. 4. Sclerotic aortic valve which is not stenotic. 5. Definity contrast used to improve visualization. Left Ventricle Left ventricular chamber dimension is normal. Left ventricular systolic function is normal, estimated at 65-70%. The left ventricular diastolic function is normal. Definity contrast injected to improve visualization. Right Ventricle Right ventricular chamber dimension is normal. Left Atria Left atrial chamber dimension is moderately enlarged. Right Atria Right atrial chamber dimension is normal. Aortic Valve The aortic valve is trileaflet. There is mild aortic valve sclerosis. Pulmonic Valve The pulmonic valve is not well visualized. Mitral Valve The mitral valve has normal leaflets. There is no mitral valve regurgitation. The mitral valve annulus is moderately calcified. Tricuspid Valve The tricuspid valve leaflets are normal. Pericardium/Pleural The pericardium appears normal. Aorta The aortic root size at the sinus of Valsalva is normal. Left Ventricular Outflow Tract Name Value Normal LVOT 2D LVOT Diameter 2.09 cm LVOT Doppler LVOT Peak Gradient 6 mmHg LVOT Mean Gradient 2 mmHg LVOT VTI 28.62 cm LVOT VTI/AV VTI Ratio 0.95 LVOT Stroke Volume 97.85 ml LVOT CO 6.51 l/min LVOT CI 3.54 L/min/m2 Pulmonic Valve Name Value Normal PV Doppler PV Peak Gradient 4 mmHg Mitral Valve Name Value Normal MV Dopp
[2020-09-15 09:12] LABS: Percent Iron Saturation < 5 % (20-50)
[2020-09-15] MEDS: hetaSTARCH 6%/NACL 500 ML 250 ML IV CONT (09:14)
[2020-09-15] MEDS: FENTANYL 2,500MCG/NS250ML(*CRX 2,500 MCG/250 ML BAG IV CONT (09:20)
[2020-09-15 09:24] LABS: Folic Acid > 20.0 ng/mL (2.76->20)
[2020-09-15 10:41] LABS: Ferritin > 2000.00 ng/mL (11.1-264)
--- NOTE | 2020-09-15 10:43 | PM.CNGS ---
Assessment and Plan Assessment and plan (1) Septic shock: Code(s): A41.9 - Sepsis, unspecified organism; R65.21 - Severe sepsis with septic shock Status: Acute Assessment and Plan: worsening despite broad spectrum abx, multiple sources likely, cont abx, pressors for now, long d/w son and would like to cont full support at this time (2) Cholecystitis: Code(s): K81.9 - Cholecystitis, unspecified Status: Acute Assessment and Plan: cont abx, will ask IR for perc cholecystostomy (3) Acute respiratory failure: Qualifiers: Respiratory failure complication: unspecified whether with hypoxia or hypercapnia Qualified Code(s): J96.00 - Acute respiratory failure, unspecified whether with hypoxia or hypercapnia Code(s): J96.00 - Acute respiratory failure, unspecified whether with hypoxia or hypercapnia Status: Acute Assessment and Plan: vented, mgmt per financial secretary (4) Cardiac arrest: Code(s): I46.9 - Cardiac arrest, cause unspecified Status: Acute Assessment and Plan: s/p code, cont maximal support at this time, very poor overall prognosis History of Present Illness Consult details Consult date: 09/15/20 Reason for consult: abdominal pain Requesting physician: Dhara Hopper MD Narrative: Pt is a 75 y/o F c multiple med issues including aphasia, dysphagia s/p CVA presenting for ECF for evaluation of progressive abdominal distention. Pt found to be septic and CT showed acute cholecystitis. Pt subsequently admitted and started on IV abx. Pt then coded overnight and is now intubated in the ICU. Pt cont to deteriorate and now on multiple pressors. Given many major comorbidities, pt is very poor surgical candidate. Review of Systems Review of Systems: ROS unobtainable: Yes unobtainable due to endotracheal tube, unobtainable due to medical condition and unobtainable due to mental status PMF Past Medical History Medical History History of diabetes mellitus History of hyperlipidemia History of hypertension Social History Social History Smoking status: Never smoker Alcohol intake: never Substance use: never Spiritual care concerns: No Comments Past surgical history - G tube placement Meds Home Medications and Allergies Home Medications Medication Instructions Recorded Confirmed Type amlodipine 10 mg FEEDING TUBE DAILY 06/05/20 09/15/20 History aspirin [Adult Low Dose Aspirin] 81 mg FEEDING TUBE DAILY 06/05/20 09/15/20 History cholestyramine (with sugar) 4 g FEEDING TUBE DAILY 06/05/20 09/15/20 History glucagon (human recombinant) 1 mg SUBCUT Q15-20M PRN 06/05/20 09/15/20 History [GlucaGen HypoKit] hydralazine 50 mg FEEDING TUBE TID 06/05/20 09/15/20 History insulin glargine [Lantus U-100 30 unit SUBCUT HS 06/05/20 09/15/20 History Insulin] losartan 100 mg FEEDING TUBE DAILY 06/05/20 09/15/20 History multivitamin with minerals 15 ml FEEDING TUBE DAILY 06/05/20 09/15/20 History pravastatin 40 mg FEEDING TUBE DAILY 06/05/20 09/15/20 History propranolol 120 mg FEEDING TUBE BID 06/05/20 09/15/20 History insulin aspart U-100 [Novolog See Rx Instructions .ROUTE .COMPLEX 09/15/20 09/15/20 History PenFill U-100 Insulin] miconazole nitrate [DermaFungal] 1 applic TOPICAL DAILY PRN 09/15/20 09/15/20 History Allergies Allergy/AdvReac Type Severity Reaction Status Date / Time No Known Allergies Allergy Unknown Verified 07/05/20 14:47 Vital Signs Vital Signs - 24 hr 09/14/20 19:57 09/14/20 20:05 09/14/20 20:38 Temperature 36.8 C 37.6 C Pulse Rate 79 72 Respiratory Rate 33 H 38 H Blood Pressure 130/57 L 125/60 Pulse Oximetry 90 95 95 09/14/20 21:50 09/14/20 22:31 09/14/20 23:22 Temperature 37.6 C H Pulse Rate 67 65 60 Respiratory Rate 34 H 35 H 30 H Blood Pressure 129/52 L 94/71 L 98/71 L Pulse Oxi
[2020-09-15] MEDS: PERFLUTREN LIPID MICROSPHERES 1.5 ML VIAL DILUTED TO 10 ML TOTAL VOLUME (11:14)
--- NOTE | 2020-09-15 11:24 | PM.CNCAR ---
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 She enters the hospital with abdominal pain abdominal distention absent bowel sounds and the picture of cholecystitis sepsis and in that setting had no discernible blood pressure last evening. Code was called it looks like she received CPR and had return of spontaneous circulation. There was no evidence according to the chart that she required defibrillation. She is now intubated in the ICU on aggressive pressor support. The picture of this is most suggestive of overwhelming sepsis rather than a primary cardiac event. It would be helpful if there were rhythm strips in the chart recorded at the time of the event but I do not find that to be the case. At this point aggressive supportive care is all that there is to recommend I do not have any specific cardiac recommendations. Given her overall very poor quality of it would be also very reasonable to discuss level of aggressiveness/code status with her next of kin. These efforts are being made today by the guyline operator. Fabricio Gaston MD [facility] History of Present Illness History of Present Illness Consult date/time: 09/15/20 11:24 Reason For Visit: Sepsis, Acute Cholecystitis Narrative: This is a 75-year-old woman I was requested to see by the hospitalist service this morning according to the chart because of a cardiac arrest which occurred in the middle of the night. Upon reviewing the chart I do not see any clear documentation that a cardiac arrest occurred. This is a very unfortunate patient who is now intubated in the ICU room 12. On a pressor support and obviously incapable of providing any history. According to the chart this is a chronically ill debilitated lady who had a stroke a number of years ago she has a hemiplegia and as baseline expressive aphasia. She apparently had significant abdominal pain abdominal distension and came to the emergency department where she was found to have evidence of acute cholecystitis. She was admitted to the hospital for further evaluation and management. Apparently at about 1:00 a.m. in the morning rapid response was called because she was found to be unresponsive. According to the notes that her in the chart CPR occurred and return of spontaneous circulation was achieved. There is no comment in the notes as to what the cardiac rhythm was nor are there any rhythm strips in the chart for my review at the time of this event. She is currently in sinus rhythm and in the ICU room 12. And is on aggressive inotropic support. Her lab data suggests significant sepsis with high lactic acid levels and a significant leukocytosis. She also has a concerning coagulopathy as well as significant anemia and thrombocytopenia. Surgical consultation was appropriately requested in the ability seen the patient this morning and deemed her not to be an operative candidate. In this setting I am seeing the patient in consultation today. She is still a full code status although the ICU staff are appropriately attempting to contact family members to further discuss this. Review of Systems Review of Systems: ROS unobtainable: Yes unobtainable due to endotracheal tube and unobtainable due to medical condition PMF Past Medical History Medical History History of diabetes mellitus History of hyperlipidemia History of hypertension Social History Social History Smoking status: Never smoker Alcohol intake: never Substance use: never Spiritual care concerns: No Meds Home Medications and Allergies Home Medications Medication Instructions Recorded Confirmed Type amlodipine 10 mg FEEDING TUBE DAILY 06/05/20 09/15/20 History asp
--- NOTE | 2020-09-15 12:08 | WPDCNINT ---
Assessment and Plan Assessment and plan (1) Septic shock: Code(s): A41.9 - Sepsis, unspecified organism; R65.21 - Severe sepsis with septic shock Status: Acute Assessment and Plan: Septic shock likely related to acute cholecystitis, decreased organ perfusion -elevated lactic acid along with acute kidney injury -coagulopathy -patient started on Zosyn and vancomycin -blood cultures have been obtained -patient on Levophed and epinephrine, will maintain MAP > 65 mmHg for adequate end organ perfusion and prevention of organ damage (2) Acute respiratory failure: Qualifiers: Respiratory failure complication: unspecified whether with hypoxia or hypercapnia Qualified Code(s): J96.00 - Acute respiratory failure, unspecified whether with hypoxia or hypercapnia Code(s): J96.00 - Acute respiratory failure, unspecified whether with hypoxia or hypercapnia Status: Acute Assessment and Plan: Acute respiratory failure secondary vomiting during cardiac arrest, possible aspiration -intubated on CMV mode of ventilation, -chest x-ray and ABGs reviewed -continue bronchodilators -sedated with fentanyl for now, Versed if required (3) Cardiac arrest: Code(s): I46.9 - Cardiac arrest, cause unspecified Status: Acute Assessment and Plan: Cardiac arrest likely related to acute critical care illness, septic shock. At baseline is chronically ill. -could be related to vomiting, aspiration leading to a cardiac arrest/event -appreciate cardiology evaluation recommendation (4) Acute cholecystitis: Code(s): K81.0 - Acute cholecystitis Status: Acute Assessment and Plan: Acute cholecystitis as seen on the CT scan of the abdomen pelvis -appreciate surgical evaluation recommendation -cholecystostomy tube to be placed by interventional radiology (5) Thrombocytopenia: Code(s): D69.6 - Thrombocytopenia, unspecified Status: Acute Assessment and Plan: Likely related to septic shock -continue monitor platelet count (6) Coagulopathy: Code(s): D68.9 - Coagulation defect, unspecified Status: Acute Assessment and Plan: INR of 2.0 this morning likely related to septic shock -will give FFP x1 unit and vitamin K -follow INR (7) History of diabetes mellitus: Code(s): Z86.39 - Personal history of other endocrine, nutritional and metabolic disease Status: Chronic Assessment and Plan: Will add Accu-Cheks and sliding scale insulin (8) Normocytic anemia: Code(s): D64.9 - Anemia, unspecified Status: Acute Assessment and Plan: Drop in hemoglobin likely related to hemodilution -will continue to trend hemoglobin and hematocrit (9) Acute kidney injury: Code(s): N17.9 - Acute kidney failure, unspecified Status: Acute Assessment and Plan: Acute kidney injury likely related to septic shock, hypotension, acute infection, prerenal -patient received 30 mL/kg of IV fluids in the form of bolus -remains on sodium bicarbonate infusion at 125 mL/hour -give additional 500 mL of Hespan -continue to monitor urine output, renal function electrolytes Additional Plan Discuss with family and updated with patient's condition plan of care Code status: Full code Critical care time spent: 46 minutes -discussed with surgery, recommended percutaneous cholecystostomy, IR has agreed to perform today Due to a high probability of clinically significant, life threatening deterioration, the patient required my highest level of preparedness to intervene emergently and I personally spent this critical care time directly and personally managing the patient. This critical care time included obtaining a history; examining the patient; pulse oximetry; ordering and review of studies; arranging urgent treatment with development of a management plan; evaluation of patient's response to treatment; frequent reassessment; and discussion
[2020-09-15] MEDS: PHYTONADIONE ADULT INJ 10 MG in DEXTROSE 5% IN WATER 50 ML 100 MG IVPB (12:41)
[2020-09-15 13:07] LABS: Reflex Lactic Acid Yes or No Add Lactic
[2020-09-15] MEDS: SODIUM CHLORIDE 0.9% IV 250 ML 30 ML IV CONT (13:30)
[2020-09-15 13:47] LABS: Hemoglobin 7.7 g/dL (12.0-15.0)
[2020-09-15 14:03] LABS: Lactic Acid 6.8 mmol/L (0.7-2.1)
--- NOTE | 2020-09-15 14:25 | PM.IMPN ---
Progress Note: A&P Assessment and Plan (1) Cardiac arrest: Code(s): I46.9 - Cardiac arrest, cause unspecified Status: Acute Assessment and Plan: The patient has been transferred to ICU emergently after code blue. telemetry. Continue post cardiac arrest care. The patient currently is not on any sedation and has no purposeful movements. The patient does appear to be posturing at this time. We have talked with the family and they would like everything to be done And keep the patient full code at this time. I have consulted our dobby loom chain pegger Dr. Hopper and discussed the case with him in detail. At this time he does not think we should start cooling protocol for the patient. We will check the patient's electrolytes, repeat routine labs, troponin. Protonix IV for GI prophylaxis. We wiill consult Cardiology. Obtain repeat EKG now. We will obtain a stat CT brain without contrast once the patient is hemodynamically stable. Neurology consultation in a.m.. 09/15/20 14:25 patient is 75 year female resident of [facility] with history of CVA resulting in aphasia patient was brought to the emergency department with abdominal distension and pain unfortunately patient was not able to provide any history review of symptom, upon arrival patient in the leukocytosis and elevated lactic acid level patient was not hypotensive and and MAP of greater than 65, abdominal CT scan revealed acute cholecystitis Surgery was consulted and patient was admitted and to IMU, upon arrival patient was not responsive code ene was called and CPR was resumed patient did gain ROSC, patient was started on IV fluid, vasopressors, and intubated by the supervisor paper testing. Being treated with Zosyn and vancomycin, patient was seen by surgery team this morning recommended percutaneous cholecystotomy to drain the gallbladder, currently patient is on vent unable to provide any history review of symptom, patient is seen by dobby loom chain pegger, vault service mechanic and surgery service we appreciate (2) Acute respiratory failure: Qualifiers: Respiratory failure complication: unspecified whether with hypoxia or hypercapnia Qualified Code(s): J96.00 - Acute respiratory failure, unspecified whether with hypoxia or hypercapnia Code(s): J96.00 - Acute respiratory failure, unspecified whether with hypoxia or hypercapnia Status: Acute Assessment and Plan: May be secondary to septic shock and/or severe metabolic acidosis. The patient has been intubated and placed on mechanical ventilation. Will continue ventilatory support monitor ABG. Continue dobby loom chain pegger recommendations. Wean off of ventilator when possible. We will sedate the patient with Versed and fentanyl if necessary. (3) Septic shock: Code(s): A41.9 - Sepsis, unspecified organism; R65.21 - Severe sepsis with septic shock Status: Acute Assessment and Plan: Source of septic shock appears to be GI versus urinary at this time. The patient likely also aspirated during code blue. We will amplify antibiotics to include vancomycin IV and continue Zosyn IV. Blood cultures urine cultures are pending. We will check a sputum culture. Aspiration precautions. Monitor blood pressure closely. The patient is already on Levophed and epinephrine IV for vasopressor support. Will amplify this with vasopressin if necessary. Continue to monitor acid-base status closely. Pickens catheter. Monitor urine output closely. I have placed a left central IJ line for vasopressor support and IV access. Will also administer hydrocortisone IV as the patient may be relatively adrenally insufficient and this will it help with permissive action on blood pressure. (4) Metabolic acidosis: Code(s): E87.2 - Acidosis Status: Acute Assessment and Plan: acute metabolic acidosis is likely secondary to septic shock and hypoperfusion. We will continue IV fluids. At this point in time we will initiate s
[2020-09-15] MEDS: INSULIN ASPART (*BKC) 100 UNITS/ML SUB-Q (18:08)
[2020-09-15 18:09] LABS: Sodium Urine Random 69 meq/L
[2020-09-15 18:32] LABS: Glucose Point of Care 201 (65-105)
[2020-09-15 19:31] LABS: SARS-CoV-2 RNA PCR Negative
[2020-09-15 20:14] LABS: Hematocrit 29.3 % (37.0-47.0); Immature Platelet Fraction Pct 25.3 % (0.9-11.2); Mean Corpuscular HGB Conc 34.1 g/dl (32-36); Mean Corpuscular Hemoglobin 29.9 pg (26-34); Mean Corpuscular Volume 87.5 fl (80-100); Platelet Count Result 34 k/mm3 (150-375); Red Blood Count 3.35 M/mm3 (4.2-5.4); Red Cell Distribution Width 14.3 % (11.5-14.5); White Blood Count 14.9 K/mm3 (4.5-10.0)
[2020-09-15 20:24] LABS: Alveolar/Arterial O2 Gradient 335.3 mmHg; Base Excess ABG -1.6 mEq/l (+/-2.0); Fractional Inspired Oxygen 60 %; Oxygen Content ABG 13.5 %vol (16.0-22.0); Oxyhemoglobin 88.8 % THb (90.0-100.0); PCO2 ABG 38.4 mmHg (35.0-45.0); PO2 ABG 50.3 mmHg (80.0-100.0); PO2 FiO2 Ratio Arterial Blood 0.84 %; Total Hemoglobin 10.8 g/dL (12.0-18.0); pH ABG 7.395 (7.350-7.450)
[2020-09-15 20:26] LABS: Arterial Blood Gas PEEP 7 cmH2O; Arterial Blood Gas Vent Mode ASSIST CONTROL; Arterial Blood Gas Ventilator rate 15 /MIN; Device VENTILATOR; Oxygen Saturation ABG 85.7 % (95.0-100.0); Site Drawn ARTLINE
[2020-09-15 20:27] LABS: Arterial Blood Gas Tidal Volume 380 ml
[2020-09-15 20:33] LABS: Alanine Aminotransferase 81 U/L (4-35); Albumin Level 1.9 g/dL (3.5-5.1); Alkaline Phosphatase 75 U/L (38-126); Anion Gap 8 mmol/L (8-16); Aspartate Amino Transferase 224 U/L (14-36); Bilirubin,Total 1.9 mg/dL (0.2-1.3); Blood Urea Nitrogen 33 mg/dL (7-17); Calcium 5.7 mg/dL (8.4-10.2); Carbon Dioxide 25 mmol/L (22-30); Chloride 90 mmol/L (98-107); Estimated CRCL calculation 31 ml/min; Estimated Glomerular Filt Rate 37; Glucose 206 mg/dL (65-105); Lactic Acid Reflex 5.7 mmol/L (0.7-2.1); Potassium 4.5 mmol/L (3.4-5.0); Sodium 123 mmol/L (137-145)
[2020-09-15 20:45] LABS: Band Neutrophils Percent 15 % (0-6); Eosinophils Absolute Manual 0.14 K/mm3 (0.02-0.5); Eosinophils Percent Manual 1 % (0-4); Lymphocytes Absolute Manual 0.89 K/mm3 (1.1-4.5); Lymphocytes Percent Manual 6 % (18-44); Metamyelocytes Percent 1 %; Monocytes Absolute Manual 0.59 K/mm3 (0.1-0.90); Monocytes Percent Manual 4 % (3-9); Total Cells Counted 100
[2020-09-15 20:46] LABS: Neutrophils Absolute Manual 13.11 K/mm3 (1.7-7.2); Neutrophils Percent Manual 73 % (46-73); Platelet Estimate Decreased (Adequate)
[2020-09-15] MEDS: NOREPINEPHRINE 8 MG/D5W 250 ML 8 MG/250 ML BAG 46.88 MG IV CONT (22:20)
[2020-09-15] MEDS: CALCIUM GLUC 2,000 MG/NS 100ML 2,000 MG/100 ML BAG 100 MG IVPB (22:59)
[2020-09-16] VITALS (33 sets, daily range): BP systolic 99–137; BP diastolic 40–54; PULSE 64–77; RESP 18–22; TEMP 36.1–37.2; O2SAT 93–99
[2020-09-16 00:11] LABS: Glucose Point of Care 182 (65-105)
[2020-09-16] MEDS: ALBUTEROL SULFATE NEB 2.5 MG/0.5 ML INH 5 MG INHALATION ×4 (02:35→20:14)
[2020-09-16] MEDS: SODIUM BICARBONATE 8.4% 150 MEQ in WATER, STERILE FOR INJECTION 950 ML 100 MEQ IV CONT (03:00)
[2020-09-16 04:17] LABS: Alveolar/Arterial O2 Gradient 393.6 mmHg; Base Excess ABG 1.1 mEq/l (+/-2.0); Carboxyhemoglobin 0.3 % THb (0-2.0); Fractional Inspired Oxygen 70 %; HCO3 ABG 24.7 mEq/l (22.0-26.0); Methemoglobin ABG 0.2 %THb (0-1.5); Oxygen Content ABG 14.6 %vol (16.0-22.0); Oxygen Saturation ABG 94.3 % (95.0-100.0); Oxyhemoglobin 93.8 % THb (90.0-100.0); PCO2 ABG 35.9 mmHg (35.0-45.0); PO2 ABG 66.9 mmHg (80.0-100.0); PO2 FiO2 Ratio Arterial Blood 0.96 %; Reduced Hemoglobin 5.7 %THb (0-5.0); pH ABG 7.456 (7.350-7.450)
[2020-09-16 04:18] LABS: Arterial Blood Gas PEEP 7 cmH2O; Arterial Blood Gas Tidal Volume 380 ml; Arterial Blood Gas Vent Mode ASSIST CONTROL; Arterial Blood Gas Ventilator rate 15 /MIN; Device VENTILATOR; Site Drawn ARTLINE
[2020-09-16] MEDS: NOREPINEPHRINE 8 MG/D5W 250 ML 8 MG/250 ML BAG 56.25 MG IV CONT ×5 (04:36→23:03)
[2020-09-16] MEDS: HYDROCORTISONE SODIUM SUCCINATE 100 MG/2 ML VIAL IV PUSH ×3 (05:41→21:39)
[2020-09-16 06:06] LABS: Hemoglobin 9.6 g/dL (12.0-15.0); Immature Platelet Fraction Pct 28.9 % (0.9-11.2); Mean Corpuscular HGB Conc 35.6 g/dl (32-36); Mean Corpuscular Hemoglobin 30.4 pg (26-34); Mean Corpuscular Volume 85.4 fl (80-100); Mean Platelet Volume 13.9 fl (7.4-10.4); Platelet Count Result 28 k/mm3 (150-375); Red Blood Count 3.16 M/mm3 (4.2-5.4); Red Cell Distribution Width 14.3 % (11.5-14.5); White Blood Count 17.5 K/mm3 (4.5-10.0)
[2020-09-16 06:11] LABS: INR 1.8; Prothrombin Time 21.9 Seconds (11.1-14.7)
[2020-09-16 06:12] LABS: Partial Thromboplastin Time 39.4 SECONDS (22.3-36.8)
[2020-09-16] MEDS: CENTRAL LINE FLUSH 10 ML IV PUSH ×4 (06:25→21:40)
[2020-09-16 06:37] LABS: Lactic Acid Reflex 5.5 mmol/L (0.7-2.1)
[2020-09-16 07:23] LABS: Hemoglobin A1C 6.1 % (<5.7)
[2020-09-16 07:34] LABS: Magnesium 2.7 mg/dL (1.6-2.3)
[2020-09-16] MEDS: PANTOPRAZOLE SODIUM IV 40 MG VIAL IV PUSH (08:01)
[2020-09-16 08:59] LABS: Reflex Lactic Acid Yes or No Add Lactic
[2020-09-16 09:15] LABS: Albumin Level 1.8 g/dL (3.5-5.1); Alkaline Phosphatase 72 U/L (38-126); Anion Gap 8 mmol/L (8-16); Aspartate Amino Transferase 160 U/L (14-36); Bilirubin,Total 1.9 mg/dL (0.2-1.3); Blood Urea Nitrogen 37 mg/dL (7-17); Calcium 5.7 mg/dL (8.4-10.2); Carbon Dioxide 27 mmol/L (22-30); Chloride 85 mmol/L (98-107); Estimated CRCL calculation 37 ml/min; Estimated Glomerular Filt Rate 32; Glucose 204 mg/dL (65-105); Potassium 4.4 mmol/L (3.4-5.0); Sodium 120 mmol/L (137-145)
[2020-09-16 09:21] LABS: Alanine Aminotransferase 72 U/L (4-35)
[2020-09-16 10:14] LABS: Lactic Acid 5.7 mmol/L (0.7-2.1)
--- NOTE | 2020-09-16 10:20 | PM.CNNEP ---
Assessment and Plan Assessment and plan (1) Acute hyponatremia: Code(s): E87.1 - Hypo-osmolality and hyponatremia Status: Acute Assessment and Plan: the patient has low sodium. I do not think this is a chronic problem even though she did have low sodium a few years ago. Most likely this is related to her renal failure, hypotension, and pressors causing difficulty with handling of free water by the kidneys. She is getting free water in. I talked with the nurse and they have everything concentrated to the highest degree to minimize free water intake. At this point I will get serum osmolality urine osmolality TSH and cortisol levels as well as an SPEP and kappa lambda ratio. We can't really minimize how much fluid she gets because of her severe illness so I will give 3% saline to try to balance the free water she gets. I will start with 360cc over 3 hours and repeat the sodium after that and go from there. Will try to keep the sodium level in the high 120s or low 130s of possible. Hopefully she will improve soon and her fluid requirements will decrease. (2) Acute kidney injury: Code(s): N17.9 - Acute kidney failure, unspecified Status: Acute Assessment and Plan: the patient has acute kidney injury. This is likely due to septic shock and pressors. Pre renal azotemia is a possibility from 3rd spacing as well. rhabdomyolysis is always a possibility as well. So will check a CPK. Obstruction is always a possibility but she had a CT scan showing no hydronephrosis. Glomerulonephritis and interstitial nephritis are unlikely in this scenario. Vascular catastrophe is unlikely as well in this setting will get urine electrolytes, eosinophils, and CPK (3) Metabolic acidosis: Code(s): E87.2 - Acidosis Status: Acute Assessment and Plan: The patient had lactic acidosis with a high anion gap. This has improved and her anion gap is back down to her baseline. We can switch her fluids back to normal saline (4) Septic shock: Code(s): A41.9 - Sepsis, unspecified organism; R65.21 - Severe sepsis with septic shock Status: Acute Assessment and Plan: the patient has septic shock from an infected gallbladder. She is getting antibiotics. Surgery is on the case (5) Acute respiratory failure: Qualifiers: Respiratory failure complication: unspecified whether with hypoxia or hypercapnia Qualified Code(s): J96.00 - Acute respiratory failure, unspecified whether with hypoxia or hypercapnia Code(s): J96.00 - Acute respiratory failure, unspecified whether with hypoxia or hypercapnia Status: Acute Assessment and Plan: the patient is intubated and on the ventilator. She is getting supportive care. (6) Cardiac arrest: Code(s): I46.9 - Cardiac arrest, cause unspecified Status: Acute Assessment and Plan: The patient is status post code blue. (7) History of hypertension: Code(s): Z86.79 - Personal history of other diseases of the circulatory system Status: Chronic Assessment and Plan: Blood pressure is okay right now but this is on pressors. (8) History of diabetes mellitus: Code(s): Z86.39 - Personal history of other endocrine, nutritional and metabolic disease Status: Chronic Assessment and Plan: on Accu-Cheks and sliding-scale insulin (9) History of hyperlipidemia: Code(s): Z86.39 - Personal history of other endocrine, nutritional and metabolic disease Status: Chronic History of Present Illness Reason for Consult Consult date: 09/16/20 Reason for consult: hyponatremia Chief Complaint Chief complaint: Sepsis, Acute Cholecystitis History of Present Illness Narrative: Lashay is an unfortunate lady who has multiple medical problems. These include diabetes, hypertension, hyperlipidemia, stroke leaving left-sided weakness and aphasia,
[2020-09-16] MEDS: SODIUM CHLORIDE 0.9% IV 1,000 ML 100 ML IV CONT ×2 (11:01→21:41)
[2020-09-16] MEDS: SODIUM CHLORIDE 3% 360 ML 120 ML IV CONT (11:06)
--- NOTE | 2020-09-16 11:07 | PM.PNCARD ---
Progress Note: A&P Additional Plan 75-year-old lady who appears to have cholecystitis with picture of septic shock requiring resuscitation and place her in the ICU on a ventilator and pressor support. No clinical changes between yesterday when I saw her in this morning. No specific cardiac recommendations to make. Aggressive supportive care/antibiotics are being provided. Agree with the surgical consultation that she is a very poor operative candidate Fabricio Gaston MD [facility] Subjective Date/time seen: Date of service: 09/16/20 11:07 Interval history: 75-year-old female with: Clinical picture of sepsis likely related to acute cholecystitis resulting in hemodynamic collapse and resuscitation on the floor. Consulted to see the patient after this event. She is critically ill intubated in ICU and on significant inotropic support. No other clinical evidence that this is a primarily a cardiac issue. Chronically ill debilitated patient because of previous CVA, hemiplegia and aphasia according to the records Exam Const: Other: Sedated patient on the ventilator Eyes: Sclera: sclerae normal Neck: Neck: supple Other: Difficult to assess JVD Resp: Other: Good aeration bilaterally some central rhonchi noted Cardio: Rate: regular rate Rhythm: regular rhythm GI: Inspection: distended Auscultation: abnormal bowel sounds (Hypoactive bowel sounds) Skin: General skin exam: normal color Objective Data Vital Signs Vital Signs: Vital Signs - 24 hr 09/15/20 11:13 09/15/20 11:35 09/15/20 12:00 Temperature Pulse Rate 74 75 73 Respiratory Rate 22 H Blood Pressure 116/46 L 116/43 L Pulse Oximetry 98 94 09/15/20 13:51 09/15/20 13:58 09/15/20 14:07 Temperature 36.8 C 36.8 C 36.8 C Pulse Rate 72 71 72 Respiratory Rate 18 21 H 22 H Blood Pressure 124/45 L 123/45 L 124/47 L Pulse Oximetry 96 95 95 09/15/20 14:37 09/15/20 14:45 09/15/20 16:00 Temperature 36.1 C L Pulse Rate 70 78 70 Respiratory Rate 18 Blood Pressure 116/45 L 131/48 L Pulse Oximetry 98 93 09/15/20 16:13 09/15/20 16:26 09/15/20 17:11 Temperature Pulse Rate 70 69 67 Respiratory Rate 28 H Blood Pressure 132/47 L 132/50 L Pulse Oximetry 09/15/20 17:12 09/15/20 17:30 09/15/20 17:55 Temperature 36.0 C L Pulse Rate 67 68 Respiratory Rate 18 Blood Pressure 133/49 L 135/50 L Pulse Oximetry 93 94 09/15/20 17:59 09/15/20 18:00 09/15/20 18:10 Temperature 36.1 C L Pulse Rate 69 67 Respiratory Rate 20 Blood Pressure 134/49 L 139/51 L Pulse Oximetry 93 09/15/20 18:17 09/15/20 18:48 09/15/20 18:51 Temperature 35.9 C L Pulse Rate 67 68 Respiratory Rate 17 Blood Pressure 137/51 L 142/55 H 142/55 H Pulse Oximetry 94 09/15/20 20:00 09/15/20 20:38 09/15/20 20:46 Temperature 36.1 C L Pulse Rate 64 62 67 Respiratory Rate 20 19 20 Blood Pressure 139/53 L Pulse Oximetry 96 09/15/20 20:47 09/15/20 21:00 09/15/20 22:00 Temperature Pulse Rate 64 64 64 Respiratory Rate 20 Blood Pressure 138/48 L 120/46 L Pulse Oximetry 94 93 09/15/20 22:20 09/15/20 23:01 09/15/20 23:44 Temperature Pulse Rate 62 63 63 Respiratory Rate Blood Pressure 121/47 L 145/50 H Pulse Oximetry 94 09/16/20 00:00 09/16/20 02:00 09/16/20 02:18 Temperature 37.0 C Pulse Rate 64 65 64 Respiratory Rate 19 22 H Blood Pressure 102/41 L 99/40 L 99/40 L Pulse Oximetry 95 94 09/16/20 02:36 09/16/20 02:42 09/16/20 04:00 Temperature 37.2 C Pulse Rate 67 66 64 Respiratory Rate 22 H 22 H 22 H Blood Pressure 110/44 L Pulse Oximetry 93 94 09/16/20 04:36 09/16/20 05:05 09/16/20 05:41 Temperature Pulse Rate 64 64 64 Respiratory Rate Blood Pressure 110/43 L 135/46 L Pulse Oximetry 95 09/16/20 06:00 09/16/20 07:54 09/16/20 08:00 Temperature 36.8 C 36.7 C Pulse Rate 66 65 65 Respiratory Rate 21 H 20 Blood Pressure 137/49 L 122/48 L Pulse Oximetry 95 95
--- NOTE | 2020-09-16 11:40 | PM.PNGS ---
Progress Note: A&P Assessment and Plan (1) Septic shock: Code(s): A41.9 - Sepsis, unspecified organism; R65.21 - Severe sepsis with septic shock Status: Acute Assessment and Plan: cont max support per family wishes, broad spectrum abx, pressors (2) Cholecystitis: Code(s): K81.9 - Cholecystitis, unspecified Status: Acute Assessment and Plan: s/p perc reanna (3) Acute respiratory failure: Qualifiers: Respiratory failure complication: unspecified whether with hypoxia or hypercapnia Qualified Code(s): J96.00 - Acute respiratory failure, unspecified whether with hypoxia or hypercapnia Code(s): J96.00 - Acute respiratory failure, unspecified whether with hypoxia or hypercapnia Status: Acute Assessment and Plan: vent mgmt per intermediate designer (4) Cardiac arrest: Code(s): I46.9 - Cardiac arrest, cause unspecified Status: Acute Assessment and Plan: s/p arrest, cont max support Subjective Subjective Date/Time Seen: 09/16/20 11:40 still intubated, sedated, had perc reanna yesterday Review of Systems Review of Systems: ROS unobtainable: Yes unobtainable due to endotracheal tube Exam Const: General: ill appearing Chest: Chest palpation & inspection: normal inspection of the chest Resp: Effort & Inspection: normal respiratory effort Auscultation: diminished lung sounds Cardio: Rate: regular rate Rhythm: regular rhythm GI: Inspection: distended GI Palp: Yes Firmness to palpation present (GI) Other: mod dist, perc reanna c bilious drainage Objective Data Vital Signs Vital Signs: Vital Signs - 24 hr 09/15/20 12:00 09/15/20 13:51 09/15/20 13:58 Temperature 36.8 C 36.8 C Pulse Rate 73 72 71 Respiratory Rate 22 H 18 21 H Blood Pressure 116/43 L 124/45 L 123/45 L Pulse Oximetry 94 96 95 09/15/20 14:07 09/15/20 14:37 09/15/20 14:45 Temperature 36.8 C Pulse Rate 72 70 78 Respiratory Rate 22 H Blood Pressure 124/47 L 116/45 L Pulse Oximetry 95 98 09/15/20 16:00 09/15/20 16:13 09/15/20 16:26 Temperature 36.1 C L Pulse Rate 70 70 69 Respiratory Rate 18 28 H Blood Pressure 131/48 L 132/47 L Pulse Oximetry 93 09/15/20 17:11 09/15/20 17:12 09/15/20 17:30 Temperature Pulse Rate 67 67 Respiratory Rate Blood Pressure 132/50 L 133/49 L Pulse Oximetry 93 09/15/20 17:55 09/15/20 17:59 09/15/20 18:00 Temperature 36.0 C L Pulse Rate 68 69 Respiratory Rate 18 Blood Pressure 135/50 L 134/49 L Pulse Oximetry 94 09/15/20 18:10 09/15/20 18:17 09/15/20 18:48 Temperature 36.1 C L Pulse Rate 67 67 Respiratory Rate 20 Blood Pressure 139/51 L 137/51 L 142/55 H Pulse Oximetry 93 09/15/20 18:51 09/15/20 20:00 09/15/20 20:38 Temperature 35.9 C L 36.1 C L Pulse Rate 68 64 62 Respiratory Rate 17 20 19 Blood Pressure 142/55 H 139/53 L Pulse Oximetry 94 96 09/15/20 20:46 09/15/20 20:47 09/15/20 21:00 Temperature Pulse Rate 67 64 64 Respiratory Rate 20 Blood Pressure 138/48 L Pulse Oximetry 94 09/15/20 22:00 09/15/20 22:20 09/15/20 23:01 Temperature Pulse Rate 64 62 63 Respiratory Rate 20 Blood Pressure 120/46 L 121/47 L 145/50 H Pulse Oximetry 93 09/15/20 23:44 09/16/20 00:00 09/16/20 02:00 Temperature 37.0 C Pulse Rate 63 64 65 Respiratory Rate 19 22 H Blood Pressure 102/41 L 99/40 L Pulse Oximetry 94 95 94 09/16/20 02:18 09/16/20 02:36 09/16/20 02:42 Temperature Pulse Rate 64 67 66 Respiratory Rate 22 H 22 H Blood Pressure 99/40 L Pulse Oximetry 93 09/16/20 04:00 09/16/20 04:36 09/16/20 05:05 Temperature 37.2 C Pulse Rate 64 64 64 Respiratory Rate 22 H Blood Pressure 110/44 L 110/43 L Pulse Oximetry 94 95 09/16/20 05:41 09/16/20 06:00 09/16/20 07:54 Temperature 36.8 C 36.7 C Pulse Rate 64 66 65 Respiratory Rate 21 H 20 Blood Pressure 135/46 L 137/49 L 122/48 L Pulse Oximetry 95 95 09/16/20
[2020-09-16 11:42] LABS: Glucose Point of Care 209 (65-105)
[2020-09-16] MEDS: INSULIN ASPART (*BKC) 100 UNITS/ML SUB-Q ×2 (11:45→23:16)
[2020-09-16 11:58] LABS: Creatine Kinase 122 U/L (30-135)
[2020-09-16 12:02] LABS: Creatinine Urine 33.7 mg/dL
[2020-09-16 12:09] LABS: Sodium Urine Random 47 meq/L
[2020-09-16 12:10] LABS: Total Protein Urine Random 300 mg/dL
[2020-09-16 13:03] LABS: Thyroid Stimulating Hormone Reflex 0.408 uIU/mL (0.465-4.68)
--- NOTE | 2020-09-16 13:10 | WPDINTPN ---
Progress Note: A&P Assessment and Plan (1) Septic shock: Code(s): A41.9 - Sepsis, unspecified organism; R65.21 - Severe sepsis with septic shock Status: Acute Assessment and Plan: Septic shock likely related to acute cholecystitis, decreased organ perfusion -elevated lactic acid along with acute kidney injury -coagulopathy, thrombocytopenia -continue Zosyn (renally dosed) and vancomycin -blood cultures growing gram-negative bacilli. Cultures growing gram-negative bacilli. -urine cultures growing Proteus mirabilis -patient on Levophed and epinephrine, will maintain MAP > 65 mmHg for adequate end organ perfusion and prevention of organ damage (2) Acute respiratory failure: Qualifiers: Respiratory failure complication: unspecified whether with hypoxia or hypercapnia Qualified Code(s): J96.00 - Acute respiratory failure, unspecified whether with hypoxia or hypercapnia Code(s): J96.00 - Acute respiratory failure, unspecified whether with hypoxia or hypercapnia Status: Acute Assessment and Plan: Acute respiratory failure secondary vomiting during cardiac arrest, possible aspiration -intubated on CMV mode of ventilation, -chest x-ray and ABGs reviewed -continue bronchodilators -sedated with fentanyl for now, Versed if required (3) Cardiac arrest: Code(s): I46.9 - Cardiac arrest, cause unspecified Status: Acute Assessment and Plan: Cardiac arrest likely related to acute critical care illness, septic shock. At baseline is chronically ill. -could be related to vomiting, aspiration leading to a cardiac arrest/event -appreciate cardiology evaluation recommendation -echocardiogram 09/15/2020 shows EF of 65 70% diastolic function is normal, (4) Acute cholecystitis: Code(s): K81.0 - Acute cholecystitis Status: Acute Assessment and Plan: Acute cholecystitis as seen on the CT scan of the abdomen pelvis -appreciate surgical evaluation recommendation -cholecystostomy tube placed by interventional radiology on 09/15/2020 (5) Thrombocytopenia: Code(s): D69.6 - Thrombocytopenia, unspecified Status: Acute Assessment and Plan: Likely related to septic shock -continue monitor platelet count -no bleeding noted, continue monitor (6) Coagulopathy: Code(s): D68.9 - Coagulation defect, unspecified Status: Acute Assessment and Plan: INR of 2.0 this morning likely related to septic shock -will give FFP x1 unit and vitamin K -INR 1.8 this morning (7) History of diabetes mellitus: Code(s): Z86.39 - Personal history of other endocrine, nutritional and metabolic disease Status: Chronic Assessment and Plan: Continue Accu-Cheks and sliding scale insulin (8) Normocytic anemia: Code(s): D64.9 - Anemia, unspecified Status: Acute Assessment and Plan: Drop in hemoglobin likely related to hemodilution -hemoglobin stable -continue to monitor (9) Acute kidney injury: Code(s): N17.9 - Acute kidney failure, unspecified Status: Acute Assessment and Plan: Acute kidney injury likely related to septic shock, hypotension, acute infection, prerenal - Patient adequately fluid-resuscitated -will discontinue bicarb infusion and start normal saline -appreciate Nephrology evaluation and recommendations -continue to monitor urine output, renal function electrolytes (10) Hyponatremia: Code(s): E87.1 - Hypo-osmolality and hyponatremia Status: Acute Assessment and Plan: Nephrology to start 3% saline -will continue to monitor BMP (11) Abdominal distension: Code(s): R14.0 - Abdominal distension (gaseous) Status: Acute Assessment and Plan: Obstructive series on 09/16 showed gas-filled distended small in mid abdomen which may represent ileus or partial obstruction rectum. -surgery following the patient -PEG tube to low intermittent suction -significant yousuf
[2020-09-16 13:39] LABS: Cortisol Random > 123.00 ug/dL
[2020-09-16 14:36] LABS: Free T4 Free Thyroxine Reflex 1.82 ng/dL (0.78-2.19)
--- NOTE | 2020-09-16 15:42 | PM.IMPN ---
Progress Note: A&P Assessment and Plan (1) Cardiac arrest: Code(s): I46.9 - Cardiac arrest, cause unspecified Status: Acute Assessment and Plan: The patient has been transferred to ICU emergently after code blue. telemetry. Continue post cardiac arrest care. The patient currently is not on any sedation and has no purposeful movements. The patient does appear to be posturing at this time. We have talked with the family and they would like everything to be done And keep the patient full code at this time. I have consulted our photo tech Dr. Hopper and discussed the case with him in detail. At this time he does not think we should start cooling protocol for the patient. We will check the patient's electrolytes, repeat routine labs, troponin. Protonix IV for GI prophylaxis. We wiill consult Cardiology. Obtain repeat EKG now. We will obtain a stat CT brain without contrast once the patient is hemodynamically stable. Neurology consultation in a.m.. 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 Being treated with Zosyn and vancomycin, patient was seen by surgery team this morning recommended percutaneous cholecystotomy to drain the gallbladder, currently patient is on vent unable to provide any history review of symptom, patient is seen by photo tech, slot floor attendant and surgery service we appreciate 1/10 patient is still on ventilator acquiring in pressor support seen by cardiology and General surgery in agreement patient is a poor candidate for cholecystectomy, status post percutaneous cholecystotomy to drain the gallbladder and it is draining, photo tech spoke with her son and gave the update, discussed with photo tech prognosis is poor will continue monitor the patient and further recommendation to follow. (2) Acute respiratory failure: Qualifiers: Respiratory failure complication: unspecified whether with hypoxia or hypercapnia Qualified Code(s): J96.00 - Acute respiratory failure, unspecified whether with hypoxia or hypercapnia Code(s): J96.00 - Acute respiratory failure, unspecified whether with hypoxia or hypercapnia Status: Acute Assessment and Plan: May be secondary to septic shock and/or severe metabolic acidosis. The patient has been intubated and placed on mechanical ventilation. Will continue ventilatory support monitor ABG. Continue photo tech recommendations. Wean off of ventilator when possible. We will sedate the patient with Versed and fentanyl if necessary. (3) Septic shock: Code(s): A41.9 - Sepsis, unspecified organism; R65.21 - Severe sepsis with septic shock Status: Acute Assessment and Plan: Source of septic shock appears to be GI versus urinary at this time. The patient likely also aspirated during code blue. We will amplify antibiotics to include vancomycin IV and continue Zosyn IV. Blood cultures urine cultures are pending. We will check a sputum culture. Aspiration precautions. Monitor blood pressure closely. The patient is already on Levophed and epinephrine IV for vasopressor support. Will amplify this with vasopressin if necessary. Continue to monitor acid-base status closely. Pickens catheter. Monitor urine output closely. I have placed a left central IJ line for vasopressor support and IV access.
[2020-09-16 15:43] LABS: Total Triiodothyronine (T3) 0.34 NG/ML (0.97-1.69)
[2020-09-16 16:25] LABS: Sodium 123 mmol/L (137-145)
[2020-09-16 18:32] LABS: Glucose Point of Care 180 (65-105)
[2020-09-16 23:15] LABS: Glucose Point of Care 204 (65-105)
[2020-09-17] VITALS (39 sets, daily range): BP systolic 118–160; BP diastolic 47–73; PULSE 74–92; RESP 17–37; TEMP 36.2–37.2; O2SAT 92–100; BMI 40.7
[2020-09-17] MEDS: ALBUTEROL SULFATE NEB 2.5 MG/0.5 ML INH 5 MG INHALATION ×4 (01:36→20:34)
[2020-09-17] MEDS: NOREPINEPHRINE 8 MG/D5W 250 ML 8 MG/250 ML BAG 56.25 MG IV CONT ×2 (04:00→05:05)
[2020-09-17 04:32] LABS: Alveolar/Arterial O2 Gradient 176.6 mmHg; Base Excess ABG -2.2 mEq/l (+/-2.0); Carboxyhemoglobin 0.3 % THb (0-2.0); Fractional Inspired Oxygen 40 %; HCO3 ABG 20.9 mEq/l (22.0-26.0); Methemoglobin ABG 0.3 %THb (0-1.5); Oxygen Content ABG 15.5 %vol (16.0-22.0); Oxygen Saturation ABG 95.6 % (95.0-100.0); Oxyhemoglobin 94.5 % THb (90.0-100.0); PCO2 ABG 30.6 mmHg (35.0-45.0); PO2 ABG 73.4 mmHg (80.0-100.0); PO2 FiO2 Ratio Arterial Blood 1.84 %; Reduced Hemoglobin 4.9 %THb (0-5.0); Total Hemoglobin 11.6 g/dL (12.0-18.0); pH ABG 7.453 (7.350-7.450)
[2020-09-17 04:33] LABS: Arterial Blood Gas Vent Mode CMV; Arterial Blood Gas Ventilator rate 15 /MIN; Device VENTILATOR
[2020-09-17 04:34] LABS: Arterial Blood Gas PEEP 7 cmH2O; Arterial Blood Gas Tidal Volume 380 ml
[2020-09-17 04:38] LABS: Site Drawn ARTLINE
[2020-09-17] MEDS: HYDROCORTISONE SODIUM SUCCINATE 100 MG/2 ML VIAL IV PUSH ×2 (05:07→13:45)
[2020-09-17] MEDS: INSULIN ASPART (*BKC) 100 UNITS/ML SUB-Q (05:07)
[2020-09-17] MEDS: CENTRAL LINE FLUSH 10 ML IV PUSH ×3 (05:08→17:37)
[2020-09-17 05:12] LABS: Hematocrit 23.3 % (37.0-47.0); Hemoglobin 8.2 g/dL (12.0-15.0); Immature Platelet Fraction Pct 27.8 % (0.9-11.2); Mean Corpuscular HGB Conc 35.2 g/dl (32-36); Mean Corpuscular Hemoglobin 29.8 pg (26-34); Mean Corpuscular Volume 84.7 fl (80-100); Mean Platelet Volume 13.3 fl (7.4-10.4); Platelet Count Result 26 k/mm3 (150-375); Red Blood Count 2.75 M/mm3 (4.2-5.4); Red Cell Distribution Width 14.2 % (11.5-14.5); White Blood Count 23.5 K/mm3 (4.5-10.0)
[2020-09-17 05:26] LABS: INR 1.4; Prothrombin Time 17.4 Seconds (11.1-14.7)
[2020-09-17 05:27] LABS: Partial Thromboplastin Time 34.1 SECONDS (22.3-36.8)
[2020-09-17 05:52] LABS: Lactic Acid Reflex 4.1 mmol/L (0.7-2.1)
[2020-09-17 06:05] LABS: Alanine Aminotransferase 49 U/L (4-35); Albumin Level 1.7 g/dL (3.5-5.1); Alkaline Phosphatase 94 U/L (38-126); Anion Gap 7 mmol/L (8-16); Aspartate Amino Transferase 82 U/L (14-36); Bilirubin,Total 2.3 mg/dL (0.2-1.3); Blood Urea Nitrogen 40 mg/dL (7-17); Calcium 5.4 mg/dL (8.4-10.2); Carbon Dioxide 23 mmol/L (22-30); Chloride 92 mmol/L (98-107); Estimated CRCL calculation 33 ml/min; Estimated Glomerular Filt Rate 28; Glucose 263 mg/dL (65-105); Magnesium 2.6 mg/dL (1.6-2.3); Phosphorus 3.2 mg/dL (2.5-4.5); Sodium 122 mmol/L (137-145)
[2020-09-17 08:07] LABS: Reflex Lactic Acid Yes or No Add Lactic
[2020-09-17] MEDS: NOREPINEPHRINE 8 MG/D5W 250 ML 8 MG/250 ML BAG 33.75 MG IV CONT (08:19)
[2020-09-17] MEDS: SODIUM CHLORIDE 0.9% IV 1,000 ML 100 ML IV CONT ×2 (08:21→17:57)
[2020-09-17] MEDS: PANTOPRAZOLE SODIUM IV 40 MG VIAL IV PUSH (08:23)
[2020-09-17 08:55] LABS: Lactic Acid 3.6 mmol/L (0.7-2.1)
[2020-09-17 09:43] LABS: CRP 31.3 mg/dL (<1.0)
[2020-09-17] MEDS: NOREPINEPHRINE 8 MG/D5W 250 ML 8 MG/250 ML BAG 26.25 MG IV CONT (10:10)
--- NOTE | 2020-09-17 10:44 | WPDINTPN ---
Progress Note: A&P Assessment and Plan (1) Septic shock: Code(s): A41.9 - Sepsis, unspecified organism; R65.21 - Severe sepsis with septic shock Status: Acute Assessment and Plan: Septic shock likely related to acute cholecystitis, UTI -elevated lactic acid along with acute kidney injury -coagulopathy, thrombocytopenia -continue Zosyn (renally dosed) but will discontinue vancomycin -blood cultures growing E coli and urine cultures growing Proteus -cholecystostomy fluid is also growing gram-negative rods -urine cultures growing Proteus mirabilis -patient on Levophed -epinephrine weaned off -continue hydrocortisone -will add 25% albumin -lactic acid is improving although still elevated (2) Acute respiratory failure: Qualifiers: Respiratory failure complication: unspecified whether with hypoxia or hypercapnia Qualified Code(s): J96.00 - Acute respiratory failure, unspecified whether with hypoxia or hypercapnia Code(s): J96.00 - Acute respiratory failure, unspecified whether with hypoxia or hypercapnia Status: Acute Assessment and Plan: Acute respiratory failure secondary vomiting during cardiac arrest, possible aspiration -intubated on CMV mode of ventilation, -chest x-ray and ABGs reviewed -continue bronchodilators -sedation holiday (3) Cardiac arrest: Code(s): I46.9 - Cardiac arrest, cause unspecified Status: Acute Assessment and Plan: Cardiac arrest likely related to acute critical care illness, septic shock. At baseline is chronically ill. -could be related to vomiting, aspiration leading to a cardiac arrest/event -appreciate cardiology evaluation recommendation -echocardiogram 09/15/2020 shows EF of 65 70% diastolic function is normal, (4) Acute cholecystitis: Code(s): K81.0 - Acute cholecystitis Status: Acute Assessment and Plan: Acute cholecystitis as seen on the CT scan of the abdomen pelvis -appreciate surgical evaluation recommendation -cholecystostomy tube placed by interventional radiology on 09/15/2020 (5) Thrombocytopenia: Code(s): D69.6 - Thrombocytopenia, unspecified Status: Acute Assessment and Plan: Likely related to septic shock -continue monitor platelet count -no bleeding noted, continue monitor (6) Coagulopathy: Code(s): D68.9 - Coagulation defect, unspecified Status: Acute Assessment and Plan: INR was 2.0 and patient was given FFP x1 unit and vitamin K -INR 1.4 (7) History of diabetes mellitus: Code(s): Z86.39 - Personal history of other endocrine, nutritional and metabolic disease Status: Chronic Assessment and Plan: Continue Accu-Cheks and sliding scale insulin (8) Normocytic anemia: Code(s): D64.9 - Anemia, unspecified Status: Acute Assessment and Plan: Drop in hemoglobin likely related to hemodilution -hemoglobin stable -continue to monitor (9) Acute kidney injury: Code(s): N17.9 - Acute kidney failure, unspecified Status: Acute Assessment and Plan: Acute kidney injury likely related to septic shock, hypotension, acute infection, prerenal - Patient adequately fluid-resuscitated -off of bicarb infusion at this time -appreciate Nephrology evaluation and recommendations -continue to monitor urine output, renal function electrolytes (10) Hyponatremia: Code(s): E87.1 - Hypo-osmolality and hyponatremia Status: Acute Assessment and Plan: Management per nephrology -will continue to monitor BMP (11) Abdominal distension: Code(s): R14.0 - Abdominal distension (gaseous) Status: Acute Assessment and Plan: Obstructive series on 09/16 showed gas-filled distended small in mid abdomen which may represent ileus or partial obstruction rectum. Patient also has fecal impaction At my request digital disimpaction was done and enema was given by nurse today -will consult GI -high outp
[2020-09-17] MEDS: NOREPINEPHRINE 8 MG/D5W 250 ML 8 MG/250 ML BAG 22.5 MG IV CONT (12:27)
[2020-09-17] MEDS: ALBUMIN HUMAN 25% 25 GM/100 ML 100 ML IVPB ×2 (12:29→17:35)
[2020-09-17 12:48] LABS: Glucose Point of Care 166 (65-105)
--- NOTE | 2020-09-17 13:06 | P.PNNP_ITS ---
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 but her hemodynamic instability may make this intervention difficult * continue supportive therapy (2) Acute hyponatremia: Code(s): E87.1 - Hypo-osmolality and hyponatremia Status: Acute Assessment and Plan: * likely secondary to GLADIS/ARF, hypotension and need for pressors * attempt to minimize free water intake via IVs, IVPBs,...etc * follow-up on pending testing * s/p 3% saline with some improvement * follow trend of repeat soidum levels (3) Metabolic acidosis: Code(s): E87.2 - Acidosis Status: Acute Assessment and Plan: * from lactic acidosis and GLADIS/ARF * doing better at this time (4) Septic shock: Code(s): A41.9 - Sepsis, unspecified organism; R65.21 - Severe sepsis with septic shock Status: Acute Assessment and Plan: * source thought to be gallbladder/cholecystitis * on pressors and wean as tolerated * Surgery following (5) Acute respiratory failure: Qualifiers: Respiratory failure complication: unspecified whether with hypoxia or hypercapnia Qualified Code(s): J96.00 - Acute respiratory failure, unspecified whether with hypoxia or hypercapnia Code(s): J96.00 - Acute respiratory failure, unspecified whether with hypoxia or hypercapnia Status: Acute Assessment and Plan: * due to acute illness and cardiac arrest * continue ventilator support * wean as tolerated (6) Cardiac arrest: Code(s): I46.9 - Cardiac arrest, cause unspecified Status: Acute Assessment and Plan: * presumably precipitated by sepsis * Cardiology recommendations noted (7) Diabetes: Code(s): E11.9 - Type 2 diabetes mellitus without complications Status: Chronic Assessment and Plan: * follow accuhecks * on SSI Will contine to follow. Subjective Date/time seen: 09/17/20 13:06 Chart reviewed since admission -- remains on full ventilator support with the need for pressors to maintain MAP; still on Levophed and epinephrine was weaned off overnight. Exam Narrative: Exam Narrative: General: ill appearing female in NAD; intubated Heart: normal S1 and S2; no rub Lungs: coarse breath sounds Abdomen: soft, nontender, nondistended, hypoactive bowel sounds Extremities: no cyanosis or clubbing; 1+ edema Skin: warm and dry Objective Data Vital Signs Vital Signs: Vital Signs Temp Pulse Resp BP Pulse Ox 09/17/20 17:23 37.1 C 87 20 134/53 L 93 09/17/20 17:10 86 97 09/17/20 15:25 37.1 C 83 20 118/50 L 93 09/17/20 15:23 85 138/55 L 09/17/20 13:50 83 140/55 L 09/17/20 13:41 36.6 C 83 20 135/53 L 93 09/17/20 13:40 85 20 09/17/20 13:36 83 129/59 L 09/17/20 13:35 82 95 09/17/20 13:34 82 20 09/17/20 12:55 82 134/55 L 09/17/20 12:36 79 121/54 L 09/17/20 12:27 83 120/54 L 09/17/20 11:10 36.6 C 82 20 128/56 L 93 09/17/20 10:43 81 94
--- NOTE | 2020-09-17 13:06 | PM.PNNEP ---
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 but her hemodynamic instability may make this intervention difficult continue supportive therapy (2) Acute hyponatremia: Code(s): E87.1 - Hypo-osmolality and hyponatremia Status: Acute Assessment and Plan: likely secondary to GLADIS/ARF, hypotension and need for pressors attempt to minimize free water intake via IVs, IVPBs,...etc follow-up on pending testing s/p 3% saline with some improvement follow trend of repeat soidum levels (3) Metabolic acidosis: Code(s): E87.2 - Acidosis Status: Acute Assessment and Plan: from lactic acidosis and GLADIS/ARF doing better at this time (4) Septic shock: Code(s): A41.9 - Sepsis, unspecified organism; R65.21 - Severe sepsis with septic shock Status: Acute Assessment and Plan: source thought to be gallbladder/cholecystitis on pressors and wean as tolerated Surgery following (5) Acute respiratory failure: Qualifiers: Respiratory failure complication: unspecified whether with hypoxia or hypercapnia Qualified Code(s): J96.00 - Acute respiratory failure, unspecified whether with hypoxia or hypercapnia Code(s): J96.00 - Acute respiratory failure, unspecified whether with hypoxia or hypercapnia Status: Acute Assessment and Plan: due to acute illness and cardiac arrest continue ventilator support wean as tolerated (6) Cardiac arrest: Code(s): I46.9 - Cardiac arrest, cause unspecified Status: Acute Assessment and Plan: presumably precipitated by sepsis Cardiology recommendations noted (7) Diabetes: Code(s): E11.9 - Type 2 diabetes mellitus without complications Status: Chronic Assessment and Plan: follow accuhecks on SSI Will contine to follow. Subjective Date/time seen: 09/17/20 13:06 Chart reviewed since admission -- remains on full ventilator support with the need for pressors to maintain MAP; still on Levophed and epinephrine was weaned off overnight. Exam Narrative: Exam Narrative: General: ill appearing female in NAD; intubated Heart: normal S1 and S2; no rub Lungs: coarse breath sounds Abdomen: soft, nontender, nondistended, hypoactive bowel sounds Extremities: no cyanosis or clubbing; 1+ edema Skin: warm and dry Objective Data Vital Signs Vital Signs: Vital Signs Temp Pulse Resp BP Pulse Ox 09/17/20 17:23 37.1 C 87 20 134/53 L 93 09/17/20 17:10 86 97 09/17/20 15:25 37.1 C 83 20 118/50 L 93 09/17/20 15:23 85 138/55 L 09/17/20 13:50 83 140/55 L 09/17/20 13:41 36.6 C 83 20 135/53 L 93 09/17/20 13:40 85 20 09/17/20 13:36 83 129/59 L 09/17/20 13:35 82 95 09/17/20 13:34 82 20 09/17/20 12:55 82 134/55 L 09/17/20 12:36 79 121/54 L 09/17/20 12:27 83 120/54 L 09/17/20 11:10 36.6 C 82 20 128/56 L 93 09/17/20 10:43 81 94 09/17/20 10:10 83 121/55 L 09/17/20 09:05 36.6 C 92 37 H 128/73 100 09/17/20 08:19 82 136/57 L 09/17/20 08:13 79 96 09/17/20 08:11 80 21 H 09/17/20 08:00 36.6 C 83 20 128/54 L 92 09/17/20 06:44 79 144/58 H 09/17/20 06:15 78 143/57 H 09/17/20 06:00 36.8 C 78 17 127/52 L 93 09/17/20 05:06 79 148/57 H 09/17/20 05:05 79 148/58 H 09/17/20 04:32 79 94 09/17/20 04:00 36.2 C L 80 21 H 127/53 L 94 09/17/20 02:20 80 123/47 L 09/17/20 02:00 37.2 C 81 20 123/50 L 94 09/17/20 01:38 80 19 98 09/17/20 00:00 74 20 137/52 L 98 09/16/20 23:04 7
--- NOTE | 2020-09-17 14:30 | PM.PNGS ---
Progress Note: A&P Assessment and Plan (1) Septic shock: Code(s): A41.9 - Sepsis, unspecified organism; R65.21 - Severe sepsis with septic shock Status: Acute Assessment and Plan: ? source, cont broad spectrum abx (2) Acute cholecystitis: Code(s): K81.0 - Acute cholecystitis Status: Acute Assessment and Plan: cont perc reanna tube, abx Subjective Subjective Date/Time Seen: 09/17/20 14:30 no acute issues, slowly coming down on pressor requirements Review of Systems Review of Systems: ROS unobtainable: Yes unobtainable due to endotracheal tube Exam Const: General: ill appearing Resp: Effort & Inspection: normal respiratory effort Auscultation: diminished lung sounds Cardio: Rate: regular rate Rhythm: regular rhythm GI: Inspection: normal to inspection and distended GI Palp: Yes Soft to palpation Other: perc reanna tube c bilious drainage Objective Data Vital Signs Vital Signs: Vital Signs - 24 hr 09/16/20 14:32 09/16/20 15:21 09/16/20 16:00 Temperature 36.1 C L Pulse Rate 72 71 71 Respiratory Rate 21 H 18 Blood Pressure 120/48 L 115/47 L Pulse Oximetry 96 09/16/20 16:56 09/16/20 18:00 09/16/20 20:00 Temperature 36.6 C Pulse Rate 69 72 74 Respiratory Rate 18 20 Blood Pressure 106/46 L 105/49 L Pulse Oximetry 95 96 98 09/16/20 20:14 09/16/20 20:19 09/16/20 22:00 Temperature 37.0 C Pulse Rate 75 74 74 Respiratory Rate 20 20 Blood Pressure 105/54 L Pulse Oximetry 99 98 09/16/20 22:47 09/16/20 23:03 09/16/20 23:04 Temperature Pulse Rate 76 77 77 Respiratory Rate Blood Pressure 118/49 L 118/49 L Pulse Oximetry 95 09/17/20 00:00 09/17/20 01:38 09/17/20 02:00 Temperature 37.2 C Pulse Rate 74 80 81 Respiratory Rate 20 19 20 Blood Pressure 137/52 L 123/50 L Pulse Oximetry 98 98 94 09/17/20 02:20 09/17/20 04:00 09/17/20 04:32 Temperature 36.2 C L Pulse Rate 80 80 79 Respiratory Rate 21 H Blood Pressure 123/47 L 127/53 L Pulse Oximetry 94 94 09/17/20 05:05 09/17/20 05:06 09/17/20 06:00 Temperature 36.8 C Pulse Rate 79 79 78 Respiratory Rate 17 Blood Pressure 148/58 H 148/57 H 127/52 L Pulse Oximetry 93 09/17/20 06:15 09/17/20 06:44 09/17/20 08:00 Temperature 36.6 C Pulse Rate 78 79 83 Respiratory Rate 20 Blood Pressure 143/57 H 144/58 H 128/54 L Pulse Oximetry 92 09/17/20 08:11 09/17/20 08:13 09/17/20 08:19 Temperature Pulse Rate 80 79 82 Respiratory Rate 21 H Blood Pressure 136/57 L Pulse Oximetry 96 09/17/20 09:05 09/17/20 10:10 09/17/20 10:43 Temperature 36.6 C Pulse Rate 92 83 81 Respiratory Rate 37 H Blood Pressure 128/73 121/55 L Pulse Oximetry 100 94 09/17/20 11:10 09/17/20 12:27 09/17/20 12:36 Temperature 36.6 C Pulse Rate 82 83 79 Respiratory Rate 20 Blood Pressure 128/56 L 120/54 L 121/54 L Pulse Oximetry 93 09/17/20 12:55 09/17/20 13:34 09/17/20 13:35 Temperature Pulse Rate 82 82 82 Respiratory Rate 20 Blood Pressure 134/55 L Pulse Oximetry 95 09/17/20 13:36 09/17/20 13:41 09/17/20 13:50 Temperature 36.6 C Pulse Rate 83 83 83 Respiratory Rate 20 Blood Pressure 129/59 L 135/53 L 140/55 L Pulse Oximetry 93 Intake/Output Intake/Output: Intake & Output 09/14/20 09/15/20 09/16/20 09/17/20 23:59 23:59 23:59 23:59 Intake Total 1050 8554 6516 2952 Output Total 932 753 1484 Balance 1050 9145 0875 1442 Meds/Results Medications: Active Medications Generic Name Dose Route Start Last Admin Trade Name Freq PRN Reason Stop Dose Admin Albuterol 5 mg 09/15/20 14:00 09/17/20 13:34 Albuterol Sulfate Neb 2.5 Mg/0.5 Ml Inh INHALATION 5 mg Q6HRT SHI Administration Dextrose 12.5 gm 09/15/20 12:23 Dextrose 50% 25 Gm/50 Ml Syringe IV PUSH PRN PRN Hypoglycemia Protocol Glucagon 1 mg 09/15/20 12:23 Glucagon For Inj 1 Mg Vial IM PRN PRN Hypoglycemi
--- NOTE | 2020-09-17 16:53 | WPDGICN ---
Assessment and Plan Assessment and plan (1) Ileus: Code(s): K56.7 - Ileus, unspecified Status: Acute Assessment and Plan: Patient has tense abdominal distention consistent with ileus. Likely on the basis of her cholecystitis CT scan suggest possible fecal impaction. This is less likely causing this abdominal distention. Decompression through the G-tube may not be successful because of House off the tube is. Plan is for placement of an NG tube for decompression. Active investigation of her GI tract is not indicated at this time. She may benefit from enemas intermittently during her hospital stay. We will follow with you. (2) Cholecystitis: Code(s): K81.9 - Cholecystitis, unspecified Status: Acute Assessment and Plan: Patient found to have acute cholecystitis. Gallbladder decompression tube placed by Radiology service and followed by the surgical service. Because of her high risk otherwise. Continue antibiotics per their direction. (3) Septic shock: Code(s): A41.9 - Sepsis, unspecified organism; R65.21 - Severe sepsis with septic shock Status: Acute (4) Cardiac arrest: Code(s): I46.9 - Cardiac arrest, cause unspecified Status: Acute Assessment and Plan: Patient is status post cardiopulmonary arrest now intubated. Followed by Cardiology and hand alterations seamstress service. Poor long-term prognosis suggested. (5) Acute respiratory failure: Qualifiers: Respiratory failure complication: unspecified whether with hypoxia or hypercapnia Qualified Code(s): J96.00 - Acute respiratory failure, unspecified whether with hypoxia or hypercapnia Code(s): J96.00 - Acute respiratory failure, unspecified whether with hypoxia or hypercapnia Status: Acute (6) Thrombocytopenia: Code(s): D69.6 - Thrombocytopenia, unspecified Status: Acute (7) History of diabetes mellitus: Code(s): Z86.39 - Personal history of other endocrine, nutritional and metabolic disease Status: Chronic (8) History of hypertension: Code(s): Z86.79 - Personal history of other diseases of the circulatory system Status: Chronic GI Consult Note Consult date/time: 09/17/20 16:53 HPI: Lashay Hernandez is a 75 year old female I am asked to see at the request of the hand alterations seamstress service. Because of fecal impaction. Patient has a history of dementia and CVA with hemiparesis she has had a PEG tube for some time. Peg tube apparently was replaced in June of this year. Patient presented to the emergency room complaining of abdominal pain on September 14 ultimately identified as having acute cholecystitis. And in septic shock. She underwent cardiopulmonary arrest was intubated and placed in the intensive care unit. Because of her multiple comorbid diseases cholecystotomy tube was placed by the surgical service under radiology direction. A CT scan was performed of the abdomen revealing evidence for possible fecal impaction. Patient is currently intubated poorly responsive at baseline is unresponsive currently has a massively distended abdomen with no bowel sounds no bowel movements as stated CT scan suggests fecal impaction. This nurse had attempted fecal disimpaction today and revealed soft stools multiple enemas were obtained however no change in her bowel function has been identified. No bleeding is described. Review of Systems Review of Systems: ROS unobtainable: Yes unobtainable due to endotracheal tube PMFSH Past Medical History Medical History History of diabetes mellitus History of hyperlipidemia History of hypertension Social History Social History Smoking status: Never smoker Alcohol intake: never Substance use: never Spiritual care concerns: No Meds Home Medications and Allergies Home Medications Medication Instructions Recorded
[2020-09-17 17:24] LABS: Anion Gap 4 mmol/L (8-16); Blood Urea Nitrogen 43 mg/dL (7-17); Calcium 5.8 mg/dL (8.4-10.2); Carbon Dioxide 26 mmol/L (22-30); Chloride 94 mmol/L (98-107); Estimated CRCL calculation 31 ml/min; Estimated Glomerular Filt Rate 26; Glucose 196 mg/dL (65-105); Potassium 3.5 mmol/L (3.4-5.0); Sodium 124 mmol/L (137-145)
[2020-09-18] VITALS (22 sets, daily range): BP systolic 122–164; BP diastolic 45–56; PULSE 72–84; RESP 18–27; TEMP 35.6–36.7; O2SAT 88–99
[2020-09-18] MEDS: CENTRAL LINE FLUSH 10 ML IV PUSH ×3 (00:13→13:09)
[2020-09-18] MEDS: HYDROCORTISONE SODIUM SUCCINATE 100 MG/2 ML VIAL IV PUSH ×3 (00:13→13:09)
[2020-09-18] MEDS: ALBUMIN HUMAN 25% 25 GM/100 ML 100 ML IVPB ×2 (00:16→06:07)
[2020-09-18 00:52] LABS: Glucose Point of Care 194 (65-105)
[2020-09-18] MEDS: ALBUTEROL SULFATE NEB 2.5 MG/0.5 ML INH 5 MG INHALATION ×3 (02:29→13:58)
[2020-09-18] MEDS: SODIUM CHLORIDE 0.9% IV 1,000 ML 100 ML IV CONT (04:27)
[2020-09-18 04:28] LABS: Immature Platelet Fraction Pct 23.9 % (0.9-11.2); Mean Corpuscular HGB Conc 34.9 g/dl (32-36); Mean Corpuscular Hemoglobin 29.9 pg (26-34); Mean Corpuscular Volume 85.6 fl (80-100); Mean Platelet Volume 14.2 fl (7.4-10.4); Red Blood Count 2.01 M/mm3 (4.2-5.4)
[2020-09-18 04:39] LABS: Alveolar/Arterial O2 Gradient 171.5 mmHg; Base Excess ABG -2.4 mEq/l (+/-2.0); Carboxyhemoglobin 0.3 % THb (0-2.0); Fractional Inspired Oxygen 40 %; HCO3 ABG 21.5 mEq/l (22.0-26.0); Methemoglobin ABG 0.5 %THb (0-1.5); Oxygen Content ABG 8.7 %vol (16.0-22.0); Oxygen Saturation ABG 95.8 % (95.0-100.0); Oxyhemoglobin 93.7 % THb (90.0-100.0); PCO2 ABG 32.7 mmHg (35.0-45.0); PO2 ABG 76.1 mmHg (80.0-100.0); Reduced Hemoglobin 5.5 %THb (0-5.0); pH ABG 7.436 (7.350-7.450)
[2020-09-18 04:39] LABS: INR 1.5; Prothrombin Time 18.9 Seconds (11.1-14.7)
[2020-09-18 04:40] LABS: Partial Thromboplastin Time 32.6 SECONDS (22.3-36.8)
[2020-09-18 04:40] LABS: Device VENTILATOR; Modified Allen's Test Pass; Site Drawn ARTLINE; Total Hemoglobin 6.5 g/dL (12.0-18.0)
[2020-09-18 04:41] LABS: Arterial Blood Gas PEEP 7 cmH2O; Arterial Blood Gas Tidal Volume 350 ml; Arterial Blood Gas Vent Mode CMV; Arterial Blood Gas Ventilator rate 15 /MIN
[2020-09-18 04:42] LABS: Alanine Aminotransferase 25 U/L (4-35); Albumin Level 2.2 g/dL (3.5-5.1); Alkaline Phosphatase 62 U/L (38-126); Anion Gap 6 mmol/L (8-16); Aspartate Amino Transferase 36 U/L (14-36); Bilirubin,Total 4.5 mg/dL (0.2-1.3); Blood Urea Nitrogen 44 mg/dL (7-17); Calcium 6.3 mg/dL (8.4-10.2); Carbon Dioxide 25 mmol/L (22-30); Chloride 96 mmol/L (98-107); Estimated CRCL calculation 31 ml/min; Estimated Glomerular Filt Rate 26; Glucose 187 mg/dL (65-105); Magnesium 2.6 mg/dL (1.6-2.3); Phosphorus 2.7 mg/dL (2.5-4.5); Potassium 3.3 mmol/L (3.4-5.0); Sodium 127 mmol/L (137-145)
[2020-09-18 04:45] LABS: Hematocrit 17.2 % (37.0-47.0); Platelet Count Result 21 k/mm3 (150-375)
[2020-09-18 04:57] LABS: Lactic Acid Reflex 1.6 mmol/L (0.7-2.1)
[2020-09-18 06:39] LABS: Pneumococcal Antigen Urine Not Detected (Not Detected)
--- NOTE | 2020-09-18 07:55 | WPDGIPROGNO ---
Progress Note: A&P Assessment and Plan (1) Ileus: Code(s): K56.7 - Ileus, unspecified Status: Acute Assessment and Plan: Patient with ileus absent bowel sounds distended abdomen. Known to have acute cholecystitis status post gallbladder decompression tube. Agree with trial of cleansing enemas. However this is unlikely to alleviate her problem. Patient is been followed by surgical service and felt to be too ill for surgical exploration indeed she likely would not survive this. Code status is to be reassessed by the family. She has multiple other problems at the present time including ventilator therapy after cardiopulmonary arrest. Anemia with profound thrombocytopenia septic shock. Plan to continue supportive cares much as feasible. Can firm code status. I have discussed case with rest room maid today. (2) Thrombocytopenia: Code(s): D69.6 - Thrombocytopenia, unspecified Status: Acute (3) Septic shock: Code(s): A41.9 - Sepsis, unspecified organism; R65.21 - Severe sepsis with septic shock Status: Acute (4) Acute respiratory failure: Qualifiers: Respiratory failure complication: unspecified whether with hypoxia or hypercapnia Qualified Code(s): J96.00 - Acute respiratory failure, unspecified whether with hypoxia or hypercapnia Code(s): J96.00 - Acute respiratory failure, unspecified whether with hypoxia or hypercapnia Status: Acute (5) Acute cholecystitis: Code(s): K81.0 - Acute cholecystitis Status: Acute Subjective Date/time seen: 09/18/20 07:55 Patient remains intubated on ventilator. Poorly responsive. Large amount of NG tube return from NG tube decompression last night. Still no recent bowel movements. She was disimpacted with manually as well as with laxatives yesterday Review of Systems Review of Systems: ROS unobtainable: Yes unobtainable due to medical condition Exam Narrative: Exam Narrative: Patient on the vent. Lungs reveal scattered rhonchi. Abdomen is distended with tense distention. Bowel sounds are absent. No obvious organomegaly appreciated. NG tube decompression now in place. Objective Data Vital Signs Vital Signs: Vital Signs - 24 hr 09/17/20 08:00 09/17/20 08:11 09/17/20 08:13 Temperature 97.9 F Pulse Rate 83 80 79 Respiratory Rate 20 21 H Blood Pressure 128/54 L Pulse Oximetry 92 96 09/17/20 08:19 09/17/20 09:05 09/17/20 10:10 Temperature 97.8 F Pulse Rate 82 92 83 Respiratory Rate 37 H Blood Pressure 136/57 L 128/73 121/55 L Pulse Oximetry 100 09/17/20 10:43 09/17/20 11:10 09/17/20 12:27 Temperature 97.8 F Pulse Rate 81 82 83 Respiratory Rate 20 Blood Pressure 128/56 L 120/54 L Pulse Oximetry 94 93 09/17/20 12:36 09/17/20 12:55 09/17/20 13:34 Temperature Pulse Rate 79 82 82 Respiratory Rate 20 Blood Pressure 121/54 L 134/55 L Pulse Oximetry 09/17/20 13:35 09/17/20 13:36 09/17/20 13:40 Temperature Pulse Rate 82 83 85 Respiratory Rate 20 Blood Pressure 129/59 L Pulse Oximetry 95 09/17/20 13:41 09/17/20 13:50 09/17/20 15:23 Temperature 97.8 F Pulse Rate 83 83 85 Respiratory Rate 20 Blood Pressure 135/53 L 140/55 L 138/55 L Pulse Oximetry 93 09/17/20 15:25 09/17/20 17:10 09/17/20 17:23 Temperature 98.7 F 98.7 F Pulse Rate 83 86 87 Respiratory Rate 20 20 Blood Pressure 118/50 L 134/53 L Pulse Oximetry 93 97 93 09/17/20 20:00 09/17/20 20:34 09/17/20 20:35 Temperature 97.5 F L Pulse Rate 88 87 88 Respiratory Rate 20 20 Blood Pressure 143/55 H Pulse Oximetry 93 97 09/17/20 20:46 09/17/20 22:00 09/17/20 23:25 Temperature Pulse Rate 87 88 84 Respiratory Rate 21 H 20 Blood Pressure 152/53 H Pulse Oximetry 94 94 09/18/20 00:00 09/18/20 02:00 09/18/20 02:32 Temperature 97.3 F L Pulse Rate 83 82 82 Respiratory Rate 21 H 19 20 Blood Pressure 122/45 L 143/48 H Pulse Oximetry 94 94 09/07
[2020-09-18] MEDS: PANTOPRAZOLE SODIUM IV 40 MG VIAL IV PUSH (09:06)
--- NOTE | 2020-09-18 10:29 | PCDIET ---
ICU Rounding Note: Patient remains NPO with NG to suction. No bowel sounds, per nursing. Family meeting planned for today to discuss comfort care. Last recorded weight is 118kg which is stable. Bowel Motility: No BM - may get additional enema later today. Labs Reviewed: Hgb (6.0), Hct (17.2), Glu (187), BUN (44), Cr (1.9), K (3.3), Na (127), Alb (2.2), Bao Ca (7.74), Mg (2.6) Meds Noted: Albuterol, Solu Cortef, Protonix, Zosyn, KCl Additional Notes: Right abdomen with drain. No pressure sores documented. Plan for blood transfusion this morning. Following daily in ICU rounds. Assessing/reassessing every 3 days.
--- NOTE | 2020-09-18 10:53 | PM.PNGS ---
Progress Note: A&P Assessment and Plan (1) Acute cholecystitis: Code(s): K81.0 - Acute cholecystitis Status: Acute Assessment and Plan: Continue percutaneous cholecystostomy tube and IV antibiotics. Patient with multiple other issues, such as post cardiac arrest, ventilatory support, ileus with fecal impaction, thrombocytopenia, coagulopathy, and anemia. Fruit Thinner having a conversation with the family today regarding further plan of care and code status. Continue supportive care for now. (2) Septic shock: Code(s): A41.9 - Sepsis, unspecified organism; R65.21 - Severe sepsis with septic shock Status: Acute Assessment and Plan: Gallbladder source. Blood cultures show growth of E.Coli sensitive to Zosyn. Bile showing growth of E.Coli sensitive to Zosyn. Urine culture showing growth of Proteus Mirabilis. Continue broad-spectrum IV antibiotics and perc. cholecystostomy tube. WBC down and lactic acid normal today. No longer requiring vasopressors. Continue management per [employer] Th[facility]. (3) Ileus: Code(s): K56.7 - Ileus, unspecified Status: Acute Assessment and Plan: Abd distended, absent bowel sounds. Fecal impaction also noted on imaging. GI has also been consulted and started enemas. Continue NG tube to suction and bowel rest for now. (4) Acute kidney injury: Code(s): N17.9 - Acute kidney failure, unspecified Status: Acute (5) Acute respiratory failure: Qualifiers: Respiratory failure complication: unspecified whether with hypoxia or hypercapnia Qualified Code(s): J96.00 - Acute respiratory failure, unspecified whether with hypoxia or hypercapnia Code(s): J96.00 - Acute respiratory failure, unspecified whether with hypoxia or hypercapnia Status: Acute Assessment and Plan: Intubated in ICU. Management per [employer]. (6) Thrombocytopenia: Code(s): D69.6 - Thrombocytopenia, unspecified Status: Acute (7) Normocytic anemia: Code(s): D64.9 - Anemia, unspecified Status: Acute Additional Plan Discussed patient's plan of care with Dr. Farr. Subjective Subjective Date/Time Seen: 09/18/20 09:00 Interval history: 75 yo who presented with acute cholecystitis, sepsis, ARF, and in the ICU intubated and unresponsive. Percutaneous cholecystostomy tube placed by Radiology on 09/15/20. She was previously on vasopressors, but is no longer on any vasopressor support with actually high blood pressures this morning. Per the nurse, the patient's family is meeting with the Fruit Thinner to have a discussion about possible comfort measures today. Review of Systems Review of Systems: ROS unobtainable: Yes unobtainable due to endotracheal tube (unresponsive on vent) Exam Const: General: ill appearing and patient obtunded Limitations: language barrier and physical limitations Eyes: Sclera: scleral abnormality bilateral (scleral edema) Resp: Auscultation: diminished lung sounds Cardio: Rate: regular rate Rhythm: regular rhythm GI: Inspection: distended GI Palp: Yes Firmness to palpation present (GI) Other: RUQ perc reanna tube c bilious drainage. LUQ g-tube clamped. NG tube with dark red/brown output on wall suction. Neuro: General: patient obtunded Extrem: General: edema bilateral (BUE) Objective Data Vital Signs Vital Signs: Vital Signs - 24 hr 09/17/20 11:10 09/17/20 12:27 09/17/20 12:36 Temperature 97.8 F Pulse Rate 82 83 79 Respiratory Rate 20 Blood Pressure 128/56 L 120/54 L 121/54 L Pulse Oximetry 93 09/17/20 12:55 09/17/20 13:34 09/17/20 13:35 Temperature Pulse Rate 82 82 82 Respiratory Rate 20 Blood Pressure 134/55 L Pulse Oximetry 95 09/17/20 13:36 09/17/20 13:40 09/17/20 13:41 Temperature 97.8 F Pulse Rate 83 85 83 Respiratory Rate 20 20 Blood Pressure 129/59 L 135/53 L Pulse Oximetry 93 09/17/20 13:50 09/17/20 15:23 09/17/20 15:25 Temperature 98.7 F Pu
--- NOTE | 2020-09-18 11:31 | P.PNNP_ITS ---
Progress Note: A&P Assessment and Plan (1) Acute kidney injury: Code(s): N17.9 - Acute kidney failure, unspecified Status: Acute Assessment and Plan: * most likely due to cardiac arrest, hemodynamic instability/shock, infection (bacteremia + UTI+ cholecystitis) and pre-renal factors from 3rd spacing * imaging studies without hydronephrosis * follow repeat labs and UOP * she remains at high risk for needed [facility] AIDE/dialysis * continue supportive therapy (2) Acute hyponatremia: Code(s): E87.1 - Hypo-osmolality and hyponatremia Status: Acute Assessment and Plan: * likely secondary to GLADIS/ARF, hypotension and need for pressors * attempt to minimize free water intake via IVs, IVPBs,...etc * follow-up on pending testing * s/p 3% saline with some improvement * follow trend of repeat sodium levels (3) Metabolic acidosis: Code(s): E87.2 - Acidosis Status: Acute Assessment and Plan: * from lactic acidosis and GLADIS/ARF * doing better at this timeif not resolved (4) Septic shock: Code(s): A41.9 - Sepsis, unspecified organism; R65.21 - Severe sepsis with septic shock Status: Acute Assessment and Plan: * source thought to be gallbladder/cholecystitis * off pressors at this time * Surgery following (5) Acute respiratory failure: Qualifiers: Respiratory failure complication: unspecified whether with hypoxia or hypercapnia Qualified Code(s): J96.00 - Acute respiratory failure, unspecified whether with hypoxia or hypercapnia Code(s): J96.00 - Acute respiratory failure, unspecified whether with hypoxia or hypercapnia Status: Acute Assessment and Plan: * due to acute illness and cardiac arrest * continue ventilator support * wean as tolerated (6) Cardiac arrest: Code(s): I46.9 - Cardiac arrest, cause unspecified Status: Acute Assessment and Plan: * presumably precipitated by sepsis * Cardiology recommendations noted (7) Diabetes: Code(s): E11.9 - Type 2 diabetes mellitus without complications Status: Chronic Assessment and Plan: * follow accuhecks * on SSI Discussed case with Dr. Swift - per family discussion, given her poor quality of life even before her current illness, they are likely moving toward comfort care measures/withdrawal of support later today as they are waiting for family members coming out of state prior to making final decision. Will continue to follow. Subjective Date/time seen: 09/18/20 11:31 Weaned off pressor support and remains relatively stable from hemodynamic perspective; remains on full ventilator support; blood/urine/gallbladder fluid cultures noted; no apparent distress noted. Exam Narrative: Exam Narrative: General: ill appearing female in NAD; intubated Heart: normal S1 and S2; no rub Lungs: coarse breath sounds Abdomen: soft, nontender, nondistended, hypoactive bowel sounds Extremities: no cyanosis or clubbing; 1+ edema Skin: warm and intact Objective Data Vital Signs Vital Signs: Vital Signs Temp Pulse Resp BP Pulse Ox 09/18/20 11:00 76 93 09/18/20 08:00 78 27 H 152/50 H 92 09/18/20 06:00 36.7 C 84 21 H 158/53 H 92 09/18/20 04:22 80 95 09/18/20 04:00 36.7 C 77 19 144/50 H 94 09/18/20 02:40 80 21 H 09/18/20 02:33 81 94 09/18/20 02:32 82 20
--- NOTE | 2020-09-18 11:31 | PM.PNNEP ---
Progress Note: A&P Assessment and Plan (1) Acute kidney injury: Code(s): N17.9 - Acute kidney failure, unspecified Status: Acute Assessment and Plan: most likely due to cardiac arrest, hemodynamic instability/shock, infection (bacteremia + UTI+ cholecystitis) and pre-renal factors from 3rd spacing imaging studies without hydronephrosis follow repeat labs and UOP she remains at high risk for needed [facility]/dialysis continue supportive therapy (2) Acute hyponatremia: Code(s): E87.1 - Hypo-osmolality and hyponatremia Status: Acute Assessment and Plan: likely secondary to GLADIS/ARF, hypotension and need for pressors attempt to minimize free water intake via IVs, IVPBs,...etc follow-up on pending testing s/p 3% saline with some improvement follow trend of repeat sodium levels (3) Metabolic acidosis: Code(s): E87.2 - Acidosis Status: Acute Assessment and Plan: from lactic acidosis and GLADIS/ARF doing better at this timeif not resolved (4) Septic shock: Code(s): A41.9 - Sepsis, unspecified organism; R65.21 - Severe sepsis with septic shock Status: Acute Assessment and Plan: source thought to be gallbladder/cholecystitis off pressors at this time Surgery following (5) Acute respiratory failure: Qualifiers: Respiratory failure complication: unspecified whether with hypoxia or hypercapnia Qualified Code(s): J96.00 - Acute respiratory failure, unspecified whether with hypoxia or hypercapnia Code(s): J96.00 - Acute respiratory failure, unspecified whether with hypoxia or hypercapnia Status: Acute Assessment and Plan: due to acute illness and cardiac arrest continue ventilator support wean as tolerated (6) Cardiac arrest: Code(s): I46.9 - Cardiac arrest, cause unspecified Status: Acute Assessment and Plan: presumably precipitated by sepsis Cardiology recommendations noted (7) Diabetes: Code(s): E11.9 - Type 2 diabetes mellitus without complications Status: Chronic Assessment and Plan: follow accuhecks on SSI Discussed case with Dr. Swift - per family discussion, given her poor quality of life even before her current illness, they are likely moving toward comfort care measures/withdrawal of support later today as they are waiting for family members coming out of state prior to making final decision. Will continue to follow. Subjective Date/time seen: 09/18/20 11:31 Weaned off pressor support and remains relatively stable from hemodynamic perspective; remains on full ventilator support; blood/urine/gallbladder fluid cultures noted; no apparent distress noted. Exam Narrative: Exam Narrative: General: ill appearing female in NAD; intubated Heart: normal S1 and S2; no rub Lungs: coarse breath sounds Abdomen: soft, nontender, nondistended, hypoactive bowel sounds Extremities: no cyanosis or clubbing; 1+ edema Skin: warm and intact Objective Data Vital Signs Vital Signs: Vital Signs Temp Pulse Resp BP Pulse Ox 09/18/20 11:00 76 93 09/18/20 08:00 78 27 H 152/50 H 92 09/18/20 06:00 36.7 C 84 21 H 158/53 H 92 09/18/20 04:22 80 95 09/18/20 04:00 36.7 C 77 19 144/50 H 94 09/18/20 02:40 80 21 H 09/18/20 02:33 81 94 09/18/20 02:32 82 20 09/18/20 02:00 36.3 C L 82 19 143/48 H 94 09/18/20 00:00 83 21 H 122/45 L 94 09/17/20 23:25 84 94 09/17/20 22:00 88 20 152/53 H 94 09/17/20 20:46 87 21 H 09/17/20 20:35 88 97 09/17/20 20:34 87 20 09/17/20 20:00 36.4 C L 88 20 143/55 H 93 09/17/20 17:23 37.1 C 87 20 134/53 L 93 09/17/20 17:10 86 97 09/17/20 15:25 37.1 C 83 20 118/50 L 93 09/17/20 15:23 85 138/55 L 09/17/20 13:50 83 140/55 L 09/17/20 13:41 36.6 C 83 20 135/53 L 93 09/17/20 13:40 85 20 09/17/20 13:36 83 129/5
--- NOTE | 2020-09-18 11:54 | WPDINTPN ---
Progress Note: A&P Assessment and Plan (1) Septic shock: Code(s): A41.9 - Sepsis, unspecified organism; R65.21 - Severe sepsis with septic shock Status: Acute Assessment and Plan: Septic shock likely related to acute cholecystitis, UTI -lactic acid has normalized now -patient was weaned off of Levophed this morning -continue Zosyn (renally dosed). vancomycin discontinue -blood cultures growing E coli and urine cultures growing Proteus. cholecystostomy fluid is also growing E coli -all cultures are sensitive to Zosyn -continue hydrocortisone -patient was given 25% albumin over last 24 hours (2) Acute respiratory failure: Qualifiers: Respiratory failure complication: unspecified whether with hypoxia or hypercapnia Qualified Code(s): J96.00 - Acute respiratory failure, unspecified whether with hypoxia or hypercapnia Code(s): J96.00 - Acute respiratory failure, unspecified whether with hypoxia or hypercapnia Status: Acute Assessment and Plan: Acute respiratory failure secondary vomiting during cardiac arrest, possible aspiration -intubated on CMV mode of ventilation, -chest x-ray and ABGs reviewed -continue bronchodilators -continue sedation holiday (3) Cardiac arrest: Code(s): I46.9 - Cardiac arrest, cause unspecified Status: Acute Assessment and Plan: Cardiac arrest likely related to acute critical care illness, septic shock. At baseline is chronically ill. -could be related to vomiting, aspiration leading to a cardiac arrest/event -appreciate cardiology evaluation recommendation -echocardiogram 09/15/2020 shows EF of 65 70% diastolic function is normal, (4) Acute cholecystitis: Code(s): K81.0 - Acute cholecystitis Status: Acute Assessment and Plan: Acute cholecystitis as seen on the CT scan of the abdomen pelvis -appreciate surgical evaluation recommendation -cholecystostomy tube placed by interventional radiology on 09/15/2020 (5) Thrombocytopenia: Code(s): D69.6 - Thrombocytopenia, unspecified Status: Acute Assessment and Plan: Likely related to septic shock -continue monitor platelet count -no bleeding noted, continue monitor -will transfuse today if patient's family wants to continue full support (6) Coagulopathy: Code(s): D68.9 - Coagulation defect, unspecified Status: Acute Assessment and Plan: INR was 2.0 and patient was given FFP x1 unit and vitamin K -INR 1.4 (7) History of diabetes mellitus: Code(s): Z86.39 - Personal history of other endocrine, nutritional and metabolic disease Status: Chronic Assessment and Plan: Continue Accu-Cheks and sliding scale insulin (8) Normocytic anemia: Code(s): D64.9 - Anemia, unspecified Status: Acute Assessment and Plan: Drop in hemoglobin likely related to hemodilution -hemoglobin stable -continue to monitor (9) Acute kidney injury: Code(s): N17.9 - Acute kidney failure, unspecified Status: Acute Assessment and Plan: Acute kidney injury likely related to septic shock, hypotension, acute infection, prerenal - Patient adequately fluid-resuscitated -off of bicarb infusion at this time -appreciate Nephrology evaluation and recommendations -creatinine remains stable -continue to monitor urine output, renal function electrolytes (10) Hyponatremia: Code(s): E87.1 - Hypo-osmolality and hyponatremia Status: Acute Assessment and Plan: Improved - Management per nephrology -will continue to monitor BMP (11) Abdominal distension: Code(s): R14.0 - Abdominal distension (gaseous) Status: Acute Assessment and Plan: Obstructive series on 09/16 showed gas-filled distended small in mid abdomen which may represent ileus or partial obstruction rectum. Patient also has fecal impaction At my request digital disimpaction was done and enema was given by nurse 09/17 Merle
[2020-09-18] MEDS: INSULIN ASPART (*BKC) 100 UNITS/ML SUB-Q (12:57)
[2020-09-18] MEDS: TUBING, BLOOD PLUM PUMP TUBING 1 EACH XX (13:05)
[2020-09-18] MEDS: SODIUM CHLORIDE 0.9% IV 250 ML 30 ML IV CONT (13:05)
--- NOTE | 2020-09-18 13:29 | PM.EVENT ---
Event Note Event Note Event Note: I met with patient's 2 sons and 3 granddaughters in presence of care management assistant and organ fixer. I updated them with patient's current status a multiorgan failure including respiratory failure sepsis, acute kidney injury, abdominal obstruction versus ileus and fecal impaction. We discussed comfort care option. They are going to visit her now and when ready will proceed with comfort care..
[2020-09-18] MEDS: LORazepam INJ (*CRX) 2 MG/ML VIAL IV PUSH (14:53)
[2020-09-18] MEDS: MORPHINE SULFATE INJ (*CRX) 10 MG/ML AMP 5 MG IV PUSH (14:54)
[2020-09-18 14:56] LABS: Glucose Point of Care 220 (65-105)
--- NOTE | 2020-09-18 15:16 | PM.IMPN ---
Progress Note: A&P Assessment and Plan (1) Cardiac arrest: Code(s): I46.9 - Cardiac arrest, cause unspecified Status: Acute Assessment and Plan: 09/18/20 15:16 The patient has been transferred to ICU emergently after code blue. telemetry. Continue post cardiac arrest care. The patient currently is not on any sedation and has no purposeful movements. The patient does appear to be posturing at this time. We have talked with the family and they would like everything to be done And keep the patient full code at this time. I have consulted our english instructor Dr. Hopper and discussed the case with him in detail. At this time he does not think we should start cooling protocol for the patient. We will check the patient's electrolytes, repeat routine labs, troponin. Protonix IV for GI prophylaxis. We wiill consult Cardiology. Obtain repeat EKG now. We will obtain a stat CT brain without contrast once the patient is hemodynamically stable. Neurology consultation in a.m.. 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 Being treated with Zosyn and vancomycin, patient was seen by surgery team this morning recommended percutaneous cholecystotomy to drain the gallbladder, currently patient is on vent unable to provide any history review of symptom, patient is seen by english instructor, it senior software engineer java and surgery service we appreciate 09/16 patient is still on ventilator acquiring in pressor support seen by cardiology and General surgery in agreement patient is a poor candidate for cholecystectomy, status post percutaneous cholecystotomy to drain the gallbladder and it is draining, english instructor spoke with her son and gave the update, discussed with english instructor prognosis is poor will continue monitor the patient and further recommendation to follow. 09/17 patient not seen 09/18 today patient's family met with the english instructor as patient prognosis is poor with a multi organ failure patient family had decided to place the patient under comfort care and possibly withdraw the care will continue to monitor (2) Acute respiratory failure: Qualifiers: Respiratory failure complication: unspecified whether with hypoxia or hypercapnia Qualified Code(s): J96.00 - Acute respiratory failure, unspecified whether with hypoxia or hypercapnia Code(s): J96.00 - Acute respiratory failure, unspecified whether with hypoxia or hypercapnia Status: Acute Assessment and Plan: May be secondary to septic shock and/or severe metabolic acidosis. The patient has been intubated and placed on mechanical ventilation. Will continue ventilatory support monitor ABG. Continue english instructor recommendations. Wean off of ventilator when possible. We will sedate the patient with Versed and fentanyl if necessary. (3) Septic shock: Code(s): A41.9 - Sepsis, unspecified organism; R65.21 - Severe sepsis with septic shock Status: Acute Assessment and Plan: Source of septic shock appears to be GI versus urinary at this time. The patient likely also aspirated during code blue. We will amplify antibiotics to include vancomycin IV and continue Zosyn IV. Blood cultures urine cultures are pending. We will check a sputum culture. Aspiration precautions. Monitor blood pressure closely. The patient is already on Le
[2020-09-18] MEDS: MORPHINE SULFATE (*CRX) 2 MG/ML INJ 4 MG IV PUSH (15:31)
[2020-09-19 14:36] LABS: Kappa\\Lambda Light Chains 1.39 (0.26-1.65); Lambda Light Chain 85.2 mg/L (5.7-26.3)
--- NOTE | 2020-09-20 08:56 | P.DN_ITS ---
Discharge Sum: Prov Provider Primary care physician: Lemuel Collazo MD Admitting provider: Zay Hernandez MD Consults: 09/14/20 Consult to Physician Routine Comment: Consulting Provider: Mare Farr Reason for consultation: ACUTE CHOLECYSTITIS Has provider been notified: Yes 09/14/20 22:40 Consult to Physician Routine Comment: Consulting Provider: Zay Hernandez Reason for consultation: SEPSIS, ACUTE CHOLECYSTITIS Has provider been notified: Yes 09/15/20 04:15 Consult to Physician Routine Comment: Consulting Provider: Fabricio Gaston call center trainer/MD group to consult: Cardiology Reason for consultation: Cardiac Arrest Has provider been notified: Yes Consult to Physician Routine Comment: Consulting Provider: Dhara Hopper call center trainer/MD group to consult: Dr. Hopper Reason for consultation: ICU transfer Has provider been notified: Yes Consult to Physician Routine Comment: Consulting Provider: David Acosta call center trainer/MD group to consult: Neurology Reason for consultation: Cardiac arrest - no purposeful movements Has provider been notified: No 09/16/20 09:26 Consult to Physician Routine Comment: Consulting Provider: Vincent Givens call center trainer/MD group to consult: NEPHROLOGY Reason for consultation: GLADIS, HYPONATREMIA Has provider been notified: Yes 09/17/20 Consult to Physician Routine Comment: Consulting Provider: Cornelius Burnett call center trainer/MD group to consult: GI Fecal Impaction, Obstruction Reason for consultation: GI Fecal Impaction, Obstruction Has provider been notified: Yes Discharge Sum: Summary Date and Time Date of admission: 09/14/20 22:38 Date of : 09/18/20 Time of : 16:27 Summary Details: patient is still on ventilator acquiring in pressor support seen by cardiology and General surgery in agreement patient is a poor candidate for cholecystectomy, status post percutaneous cholecystotomy to drain the gallbladder and it is draining, early childhood worker spoke with her son and gave the update, discussed with early childhood worker prognosis is poor will continue monitor the patient and further recommendation to follow. today patient's family met with the early childhood worker as patient prognosis is poor with a multi organ failure patient family had decided to place the patient under comfort care and possibly withdraw the care. Patient care was withdrawn and patient on 09/18 at 16:27. Additional Data Confirmation of as documented by pronouncing clinician: no pulse, no respirations, no heart sounds and pupils fixed and dilated Family: at bedside Attending/PCP notified?: Yes Attending physician: Yareli Worrell MD Was code activated?: No Autopsy requested?: No line up examiner notified?: Yes Organ bank notified?: Yes Advance directives: No Hospice patient?: No
[2020-09-20 11:43] LABS: Haptoglobin 207 mg/dL (43-212)
[2020-09-20 11:43] LABS: Osmolality, Urine 312 mOsm/kg (50-1200)
[2020-09-24 23:51] LABS: Albumin 1.4 g/dL (3.8-4.8); Alpha 1 Globulin 0.4 g/dL (0.2-0.3); Alpha 2 Globulin 0.5 g/dL (0.5-0.9); Beta 1 Globulin 0.2 g/dL (0.4-0.6); Gamma Globulin 0.6 g/dL (0.8-1.7); Protein, Total 3.4 g/dL (6.1-8.1)
== END 2020-09-18 16:27 | disposition expired | DRG 871 ==
LOC: ANHED 22:38 → ANHICU 09-17 04:55 → ANHIMU 09-19 10:35
PROVIDERS: Internal Medicine; Internal Medicine Nephrology; Admitting Provider Family Medicine; Emergency Provider Emergency Medicine; PCP Family Medicine; Visit Provider Family Medicine
DX: A41.9 Sepsis, unspecified organism (principal); J96.00 Acute respiratory failure, unspecified whether with hypoxia or hypercapnia; J69.0 Pneumonitis due to inhalation of food and vomit; R65.21 Severe sepsis with septic shock; E87.1 Hypo-osmolality and hyponatremia; E87.2 Acidosis; I69.359 Hemiplegia and hemiparesis following cerebral infarction affecting unspecified side; N17.9 Acute kidney failure, unspecified; N39.0 Urinary tract infection, site not specified; K56.7 Ileus, unspecified; K81.0 Acute cholecystitis; I10 Essential (primary) hypertension; E78.5 Hyperlipidemia, unspecified; I46.9 Cardiac arrest, cause unspecified; D69.6 Thrombocytopenia, unspecified; I69.320 Aphasia following cerebral infarction; F03.90 Unspecified dementia, unspecified severity, without behavioral disturbance, psychotic disturbance, mood disturbance, and anxiety; Z20.822 Contact with and (suspected) exposure to COVID-19
CPT/HCPCS: 31500; 36415; 36430; 36600; 47490; 71045; 71250; 74019; 74176; 76705; 80048; 80053; 80069; 81001; 82247; 82248; 82375; 82533; 82550; 82570; 82607; 82728; 82746; 82805; 83010; 83036; 83050; 83540; 83550; 83605; 83615; 83690; 83735; 83883; 83930; 83935; 84100; 84155; 84156; 84165; 84295; 84300; 84439; 84443; 84466; 84480; 84484; 85014; 85018; 85025; 85027; 85046; 85055; 85610; 85730; 85999; 86140; 86850; 86880; 86900; 86901; 86923; 87040; 87070; 87075; 87077; 87086; 87088; 87102; 87186; 87205; 87206; 87899; 92950; 93005; 94002; 94003; 94640; 96361; 96365; 99285; C1729; C8929; C9113; C9803; J0171; J0461; J0610; J1265; J1720; J1815; J2060; J2250; J2270; J2543; J3010; J3370; J3430; J3480; J7030; J7040; J7050; J7120; J7131; P9016; P9017; P9047; Q9957; U0003